=== PATIENT | male | born 1945 | race African-American/Black ===

== ENCOUNTER 2017-01-04 16:01 | Inpatient (IN) | payer OTHER, MEDICARE ==
--- NOTE | ~2017-01-04 | EGD ---
EGD REPORT [facility] [address] [address] NAME: TIFFANIE ORO : 43 STATUS : ADM IN PAT#: [id number] AGE: 71 ADM/REG DATE : 01/04/17 MR#: [id number] REPORT SERV DATE: 01/11/17 DICTATED BY: HEATH KATE DATE: 01/11/17 REPORT STATUS : Draft TRANSCRIBED BY: [facility] DATE: 01/11/17 Endoscopy Center Patient Name: Tiffanie Oro Date of : 1945 Attending MD: HEATH SUN MD Procedure Date No Time: 01/11/2017 Procedure: ERCP Indications: Jaundice, Primary sclerosing cholangitis Referring MD: LEANA MONTES DE OCA Medicines: Monitored Anesthesia Care Complications: No immediate complications. Estimated blood loss: None Procedure: Pre-Anesthesia Assessment: - ASA Grade Assessment: IV - A patient with severe systemic disease that is a constant threat to life. After obtaining informed consent, the scope was passed under direct vision. Throughout the procedure, the patient's blood pressure, pulse, and oxygen saturations were monitored continuously. The Duodenoscope was introduced through the mouth, and advanced to the duodenum and used to inject contrast into the bile duct. The ERCP was accomplished without difficulty. The patient tolerated the procedure well. Findings: The pcb designer film was normal. The esophagus was successfully intubated under direct vision. The scope was advanced to a normal major papilla in the descending duodenum without detailed examination of the pharynx, larynx and associated structures, and upper GI tract. The upper GI tract was grossly normal. After engaging the papilla with the sphinctertome, the 0.035-inch Jagwire was passed into the CBD but was unable to be passed for more than 6-7 cm without running into an obstruction. Multiple angles were tried, but the wire would not pass this area. Superficial cannulation of and contrast injection into the bile duct was accomplished with the short-nosed traction sphincterotome and the 12 mm balloon catheter. I personally interpreted the bile duct images. Image quality was adequate. The distal CBD up to the level of the cystic duct and gallbladder contained multiple diffuse stenoses. No contrast, even under forceful injection, passed beyond the level of the cystic duct, with all contrast filling the gallbladder. Therefore, the scope was withdrawn and the procedure terminated. Impression: - Diffuse biliary stricturing was found secondary to primary sclerosing cholangitis with complete blockage of the CBD above the cystic duct. - No endoscopic therapy is possible or would likely be EGD REPORT [address] [place]. [address] NAME: TIFFANIE ORO : 43 STATUS : ADM IN [facility]#: [id number] AGE: 71 ADM/REG DATE : 01/04/17 MR#: [id number] REPORT SERV DATE: 01/11/17 DICTATED BY: HEATH KATE DATE: 01/11/17 REPORT STATUS : Draft TRANSCRIBED BY: [facility] DATE: 01/11/17 helpful given diffuse stricturing and lack of dilation seen on imaging Recommendation: - [facility]. - Would consider a palliative care consult Procedure Code(s): --- Professional --- 82980, Endoscopic retrograde cholangiopancreatography (ERCP); diagnostic, including collection of specimen(s) by brushing or washing, when performed (separate procedure) Diagnosis Code(s): --- Professional --- K83.0, Cholangitis R17, Unspecified jaundice CPT copyright 2013 [employer]. All rights reserved. The codes documented in this report are preliminary and upon safety belt installer review may be revised to meet current compliance requirements. Heath Sun MD HEATH SUN MD 01/11/2017 10:45 AM This report has been signed electronically. Number of Addenda: 0 Note Initiated On: 01/11/2017 9:04 AM Scope Withdrawal Time 0 hours 0 minutes 0 seconds
--- NOTE | ~2017-01-04 | CN ---
Consultation Report [facility] [address] [place] [place]. [address] NAME: TIFFANIE ORO : 43 STATUS : ADM IN PAT#: [id number] AGE: 71 ADM/REG DATE : 01/04/17 MR#: [id number] REPORT SERV DATE: 01/05/17 DICTATED BY: MAMI ESPARZA DATE: 01/05/17 REPORT STATUS : Draft TRANSCRIBED BY: MODL DATE: 01/05/17 GI CONSULTATION DATE OF CONSULTATION: 01/05/2017 REASON FOR CONSULTATION: Evaluation and management of primary sclerosing cholangitis with autoimmune hepatitis with worsening of liver function testing. HISTORY OF PRESENT ILLNESS: Mr. Oro is a 71-year-old male patient, who has been seen by our group in the past. He was initially seen by Dr. Pereira in 01/2013 secondary to primary sclerosing cholangitis. He had an ERCP with a stent placed, then it subsequently was removed. He followed up with Dr. Pereira in 06/2014. Since that time, we did not see him until he presented to the hospital in 09/2016 when we were asked to see him for elevated liver function testing. He was seen by myself as well as Dr. Patel. He had an MRCP done, which showed obstruction of the biliary system in the intrahepatic ducts. He was taken for ERCP on 09/27/2016. Dr. Patel was unable to pass a wire beyond the takeoff of the cystic duct due to preferential passage of wire and catheter into the cystic duct likely secondary to obstruction at the level, iatrogenic bile leak was noted, the procedure was terminated and he was covered with antibiotics, and he was subsequently discharged. Before discharge, he was discussed with a liver specialist, Dr. Carlos Eduardo Mosqueda. He was discontinued on Imuran and placed on CellCept as an alternative as a last ditch therapy to try to reduce his progressive sclerosing cholangitis. The patient, at that time, had made it very clear he did not want any aggressive interventions for his progressive hepatic dysfunction. This was discussed with the patient as well as the patient's brother, as well as the caregiver of the [facility]. [facility] alpha- fetoprotein as well as a repeat CA19-9 level. I am unsure if any of this was ever done. He presented on 01/04 with complaints of confusion and jaundiced appearance. He does carry a history of schizophrenia. He lives at the [facility], they had noted worsening confusion and some abdominal bloating and distention, thus bringing him to the emergency room. CT scan of the abdomen and pelvis showed large-volume ascites as well as focal dilation of the biliary ducts, concerning for obstruction of the intrahepatic ducts. It did appear largely unchanged since his September imaging. The patient did suffer a fall after leaving his emergency room and fell off in the parking lot, sustaining a left proximal humerus fracture. Presently, his arm is in a sling. He had quite an elevation in his INR on admission to 6.5, his previous INR was 2.6. He is presently receiving FFP as well as vitamin K to bring his INR down, so he can undergo a paracentesis with fluid analysis. I have seen and examined the patient. He is awake, he is alert, he is oriented, he knows he is at [facility], he knows the year is 2016, he knows his date of , and he knows who the current president is. He denies any abdominal pain. He states that he has had some intermittent issues with hemorrhoidal irritation, but states that they took care of this in the emergency room. He was found to be anemic with a hemoglobin of 6.8. He is also going to receive two units of packed red blood cells. His stool did come back positive for occult blood. However, no obvious blood was noted to be in his bowel movement. I will discuss the case with Dr. Pereira. Likely, we will not plan on repeating an ERCP at this time secondary to the Consultation Report [address] [place]. [address] NAME: TIFFANIE ORO : 43 STATUS : ADM IN [facility]#: [id number] AGE: 71 ADM/REG DATE : 01/04/17 MR#: [id number] REPORT SERV DATE: 01/05/17 DICTATED BY: MAMI ESPARZA DATE: 01/05/17 REPORT STATUS : Draft TRANSCRIBED BY: MODL DATE: 01/05/17 failed attempt in September. 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 PAST SURGICAL HISTORY: ERCP, hiatal hernia surgery, and cholecystectomy. SOCIAL HISTORY: Past tobacco. Past alcohol. No illicits. He lives at the [facility]. FAMILY HISTORY: Mother is from pancreatic cancer. Siblings with cirrhosis. ALLERGIES: NO KNOWN ALLERGIES. HOME MEDICATIONS: Fosamax, Imuran, vitamin D, Colace, Proscar, Centrum, CellCept, Invega, Protonix, prednisone, Desyrel, ursodiol, and capsaicin. REVIEW OF SYSTEMS: A 10-point review of systems obtained with pertinent positives addressed in the history of present illness. PERTINENT LABORATORY DATA: Sodium 139, potassium 3.6, BUN is 13, creatinine 0.63. White count 13.3, hemoglobin 6.8, hematocrit is 21.1, platelet count 365. INR is 6.5. CT without contrast, large-volume ascites, which is new. Also, the wall of the descending and sigmoid colon had some diffuse edema. PHYSICAL EXAMINATION: VITAL SIGNS: Temperature 97.2, pulse 101, respirations 22, and blood pressure 95/52. NEURO: Reveals an alert male, resting in bed, chronically ill appearing. No obvious focal deficits. GENERAL: He is cooperative. He is in no obvious distress. He is awake. He is alert. He is oriented x3. HEAD, EARS, EYES, NOSE, AND THROAT: Positive for scleral icterus. Pupils are equal, round, reactive to light and accommodation. Normocephalic and atraumatic. Poor dentition noted. SKIN: Warm, dry, and intact with notable jaundice. NECK: No JVD. No palpable nodes. LUNGS: Clear anteriorly with normal respiratory effort exhibited. Equal expansion. CARDIOVASCULAR SYSTEM: Regular rate and rhythm, but tachycardic. ABDOMEN: Soft with notable ascites, mild fluid wave, no tense ascites. No abdominal pain was elicited on exam. No rebound or guarding. No organomegaly appreciated. EXTREMITIES: No edema. Normal distal pulses. Left arm is in a sling. SKIN: Warm, dry, and intact. Consultation Report [place] [address] [place] [place]. [address] NAME: TIFFANIE ORO : 43 STATUS : ADM IN [facility]#: [id number] AGE: 71 ADM/REG DATE : 01/04/17 MR#: [id number] REPORT SERV DATE: 01/05/17 DICTATED BY: MAMI ESPARZA DATE: 01/05/17 REPORT STATUS : Draft TRANSCRIBED BY: ROBINSON DATE: 01/05/17 ASSESSMENT: 1. History of primary sclerosing cholangitis with autoimmune hepatitis. 2. "Confusion" with normal ammonia. He is alert and oriented on my assessment. 3. Anemia. 4. Ascites. 5. Coagulopathy secondary to liver dysfunction. 6. Left humerus fracture status post fall on 01/04. 7. Schizophrenia. PLAN: 1. Paracentesis per primary order with fluid analysis. 2. FFP and vitamin K to reverse his INR. 3. Continue ursodiol, prednisone, CellCept, and Imuran. 4. Check an AFP as well as a CA19-9. 5. We will discuss further with Dr. Pereira if any indication for ERCP or further testing. 6. We will also add albumin prior to his paracentesis. We will follow. MAURICE/ROBINSON [place] ALICIA Mann / [id number] CC: Cat Alexander M.D.
--- NOTE | ~2017-01-04 | IDS ---
Interim Discharge Summary [facility] [address] [place] [place]. [address] NAME: TIFFANIE ORO : 43 STATUS : ADM IN PAT#: [id number] AGE: 71 ADM/REG DATE : 01/04/17 MR#: [id number] REPORT SERV DATE: 01/09/17 DICTATED BY: ALBERTO GEORGES DATE: 01/09/17 REPORT STATUS : Draft TRANSCRIBED BY: MODL DATE: 01/09/17 ADMISSION DATE: 01/04/2017 DISCHARGE DATE: Date of service provided from 01/05/2017 to 01/08/2017. For the details of history of present illness, see history of present illness dictated by Dr. Cool on 01/04/2017. CURRENT MEDICAL PROBLEMS: 1. Primary sclerosing cholangitis with autoimmune hepatitis, on treatment per recommendation of pump tester, Dr. Pereira and Dr. Mosqueda on Imuran and CellCept as well as prednisone. 2. Status post left humerus fracture this admission seen by Dr. Joselito Rai and sling with swathe was recommended. 3. Severely elevated bilirubin at 14 with coagulopathy with INR 6 being on admission secondary to primary sclerosing cholangitis and autoimmune hepatitis. 4. Ascites, status post 2 L of fluid removed by paracentesis during this hospitalization. 5. Blood pressure normal to borderline. 6. History of schizophrenia, currently stable mood. 7. History of mild aortic stenosis. CONSULTANTS ON THE CASE: Regional Program Manager, nurse practitioner, Jaime as well as under supervision of Dr. Patel as well as Dr. Carlo sEduardo Mosqueda, network systems operator was contacted by phone. He will follow up on this patient tomorrow. HISTORY OF PRESENT ILLNESS: Briefly this is a 71-year-old male, who was admitted by Dr. Cool with severe coagulopathy and severe anemia as well as hyperbilirubinemia and jaundice, weakness and he had a left humerus fracture on admission. The patient was admitted to hospital for his humerus fracture. Dr. Joselito Rai was consulted who recommended the patient to be treated conservatively with a sling, and he needs to follow up with Dr. Joselito Rai, orthopedist in two weeks. Regarding the patient's biliary obstruction, the patient needs ERCP and procedure is scheduled by Dr. Lira and Dr. Patel will do ERCP on him probably tomorrow. Also Pankaj nurse practitioner, left message on the patient's brother's cellphone. The patient's brother was here on the weekend and I spoke with the patient's brother telling him that the patient's disease does not have a good prognosis but [place], Gastroenterology nurse practitioner is going to update his brother more. She left in her cell phone for his brother to call her back. Overall plan of treatment is defined by Gastroenterology and by Dr. Patel and Dr. Carlos Eduardo Mosqueda. The patient may need placement. After this procedure, he will need physical therapy evaluation and probably placement and regarding his humeral fracture, he needs to follow up with Dr. Joselito Rai in two weeks. My partner, Dr. Baltazar will see this patient starting tomorrow morning. Also the patient is on antibiotic Levaquin per pump tester. Interim Discharge Summary [address] [address] NAME: TIFFANIE ORO : 43 STATUS : ADM IN PAT#: [id number] AGE: 71 ADM/REG DATE : 01/04/17 MR#: [id number] REPORT SERV DATE: 01/09/17 DICTATED BY: ALBERTO GEROGES DATE: 01/09/17 REPORT STATUS : Draft TRANSCRIBED BY: ROBINSON DATE: 01/09/17 /ROBINSON Alberto Georges M.D. / [id number] CC: Alberto Georges M.D.
--- NOTE | ~2017-01-04 | CN ---
Consultation Report [facility] [address] [place] [place]. [address] NAME: TIFFANIE ORO : 43 STATUS : ADM IN PAT#: [id number] AGE: 71 ADM/REG DATE : 01/04/17 MR#: [id number] REPORT SERV DATE: 01/05/17 DICTATED BY: JOSELITO RAI III DATE: 01/05/17 REPORT STATUS : Draft TRANSCRIBED BY: ROBINSON DATE: 01/05/17 CONSULTATION DATE OF CONSULTATION: 01/05/2017 CHIEF COMPLAINT: Left shoulder pain. HISTORY: The patient is a 71-year-old black male, who fell yesterday injuring his left shoulder. He presented here to the emergency room at [facility] where x-rays reveal a slightly displaced and impacted left proximal humerus fracture, and he is admitted for autoimmune hepatitis to undergo a paracentesis. On orthopedic exam, he is comfortable in his sling. He really needs to have a sling and swathe. He has some swelling to the proximal humerus with pain with minimal attempted passive range of motion. Neurologic exam to the left upper extremity is grossly intact. X-rays reveal an impacted, slightly displaced left proximal humerus fracture. PLAN: I think this will heal fine in a sling and swathe. He needs some ice on the shoulder and I will see him in two weeks. Appreciate this consultation. AUGUSTINA/ROBINSON Joselito Rai III, M.D. / [id number] CC: Cat Alexander M.D.
--- NOTE | ~2017-01-04 | HP ---
History And Physical [place] [id number] [place]. [address] NAME: TIFFANIE ORO : [birth year] STATUS : ADM IN [facility]#: [id number] AGE: 71 ADM/REG DATE : 01/04/17 MR#: [id number] REPORT SERV DATE: 01/04/17 DICTATED BY: IRENE BLOOM DATE: 01/04/17 REPORT STATUS : Draft TRANSCRIBED BY: MODGabby DATE: 01/04/17 DATE OF ADMISSION: 01/04/2017 ADDENDUM: ADDITIONAL ADMISSION DIAGNOSES: 1. Severe coagulopathy of liver disease. 2. Acute on chronic anemia. PLAN: 1. Coagulopathy of liver disease. INR was not obtained by ER staff. When I saw the patient, I ordered an INR which just came back as elevated with an INR of 6.2 consistent with severe coagulopathy of liver disease. The patient has no obvious sources of active bleeding at this time. Therefore, I will place the patient on oral vitamin K 10 mg daily, first dose today as well as type and screen. Should the patient develop obvious signs of bleeding, we will need to transfuse with FFP to correct his coagulopathy. 2. Acute on chronic anemia. The patient does have a hemoglobin of 7.7. His last hemoglobin in September was 10.9. Again, there are no obvious sources of bleeding at this time. We will check an occult stool as well as type and screen, and we will transfuse again for hemoglobin less than 7 and correct coagulopathy with vitamin K or with FFP if necessary. AUGUSTINA/ROBINSON Irene Bloom MD / [id number] CC: Cat Alexander M.D.
--- NOTE | ~2017-01-04 | DS ---
Discharge Summary [place] [id number] [place]. [address] NAME: TIFFANIE ORO : 43 STATUS : DIS IN PAT#: [id number] AGE: 71 ADM/REG DATE : 01/04/17 MR#: [id number] REPORT SERV DATE: 01/13/17 DICTATED BY: ESPERANZA STARR DATE: 01/12/17 REPORT STATUS : Draft TRANSCRIBED BY: MODL DATE: 01/12/17 ADMISSION DATE: 01/04/2017 DISCHARGE DATE: 01/12/2017 PCP: Dr. Jayashree RIBERA. CONSULTING PHYSICIAN: Outpatient GI, Dr. Pereira; Jacquard Card Lacer, Dr. Carlos Eduardo Mosqueda; Palliative Care, Dr. Wallace. FINAL DIAGNOSES: 1. Primary sclerosing cholangitis. 2. Autoimmune hepatitis. 3. Ascites, status post paracenteses. 4. Nondisplaced left humeral fracture. 5. Benign prostatic hypertrophy. 6. Schizophrenia. 7. Anemia of chronic disease. HOSPITAL COURSE: Please refer to the H and P done by Dr. Cool dated on 01/06/2017 and the interim discharge summary done by Dr. Alexander on 03/11/2017. Since I took care of this patient, the patient was supposed to have an ERCP, but that was held because of the elevated INR. The patient has a bad liver and primary sclerosing cholangitis, which causes him to have a coagulopathy. Even though we are giving vitamin K, it seems not to be going down. Finally, FFP was given, and the patient was able to undergo an ERCP. They found a diffuse biliary stricturing secondary to primary sclerosing cholangitis, with complete blockage of common bile duct above the cystic duct. No endoscopic therapy is possible or would likely be helpful given diffuse stricturing and lack of dilation seen on imaging. They recommended Palliative Care consultation. We got Dr. Wallace involved who believes that the patient is alert and oriented x3 and was understanding of what is going on and he did not want to have any resuscitation or intubation. He said that he will be considering hospice, but is wanting to go out of the hospital and go to the SNF or rehab facility and think about it there. This was explained also to the brother who seems to understand after lengthy discussion with him. The patient will now be transferred to SNF with the above diagnosis. He will need to follow up with the SNF doctor and [facility], Dr. Blanc. Follow up with Dr. Pereira and Dr. Mosqueda as well. He will be on the following medications. Imuran 50 mg a day, vitamin D 1000 units a day, Proscar 5 mg a day, Fosamax 70 mg q.7 days, multivitamin once a day, CellCept 1 g twice a day, Protonix 40 mg twice a day, Desyrel 75 mg at bedtime, spironolactone 50 mg twice a day, Lasix 20 mg twice a day, ursodiol 500 mg twice a day, prednisone 5 mg a day, capsaicin as needed, Colace 100 mg p.r.n., Invega 3 mg twice a day, Augmentin 875 mg p.o. b.i.d. for seven days. RLY/MODL Discharge Summary [address] [address] NAME: TIFFANIE ORO : 43 STATUS : DIS IN PAT#: [id number] AGE: 71 ADM/REG DATE : 01/04/17 MR#: [id number] REPORT SERV DATE: 01/13/17 DICTATED BY: ESPERANZA STARR DATE: 01/12/17 REPORT STATUS : Draft TRANSCRIBED BY: ROBINSON DATE: 01/12/17 Esperanza Starr M.D. / [id number] CC: Esperanza Starr M.D.
--- NOTE | ~2017-01-04 | HP ---
History And Physical [place] [id number] [facility] [place]. [address] NAME: TIFFANIE ORO : 43 STATUS : ADM IN [facility]#: [id number] AGE: 71 ADM/REG DATE : 01/04/17 MR#: [id number] REPORT SERV DATE: 01/06/17 DICTATED BY: IRENE BLOOM DATE: 01/04/17 REPORT STATUS : Draft TRANSCRIBED BY: MODL DATE: 01/04/17 DATE OF ADMISSION: 01/04/2017 POINT OF ENTRY: [facility] Emergency Department. PRIMARY CARE PHYSICIAN: Dr. Blanc through the [place]. PRIMARY MOLDING FITTER: Scott Pereira MD CHIEF COMPLAINT: Confusion and jaundice. HISTORY OF PRESENT ILLNESS: Mr. Oro is a 71-year-old gentleman with a known history of primary sclerosing cholangitis as well as autoimmune hepatitis who is brought to the emergency department by his family members for reports of worsening confusion, jaundice, as well as abdominal bloating and distention. The patient has a known history of primary sclerosing cholangitis as well as autoimmune hepatitis. He is currently on chronic immunosuppressives of low-dose prednisone, Imuran, as well as CellCept for these issues. He was admitted in September of 2016 for a syncopal episode, and at that time, found to have rising transaminitis secondary to his known liver disease. He underwent GI evaluation with MRCP, which was concerning for possible focal obstruction of some intrahepatic ducts resulting in an ERCP that unfortunately had to be aborted secondary to difficulty in cannulating the common bile duct. The patient has a known history of schizophrenia and currently lives at [facility]. Per nursing report, his brother was contacted by [facility] for worsening confusion, jaundice, as well as abdominal bloating and distention. Initial evaluation in the emergency department is notable for a bilirubin of 11.0. Of note, his bilirubin was 10.5 in September. The patient also has significant transaminitis, which appears to be chronic. Ammonia level was not checked by the ER physician. CT scan of the brain was unremarkable. CT scan of the abdomen and pelvis showed large volume ascites as well as focal dilatation of the biliary ducts concerning for obstruction of intrahepatic duct, which appears to be largely unchanged from prior imaging in September. Some time during his ER stay, the patient left his room and unfortunately fell in the EMS parking lot. X-rays of the left shoulder revealed a fracture of the proximal left humerus. REVIEW OF SYSTEMS: Comprehensive review of systems otherwise negative unless listed in the history of present illness. PREVIOUS MEDICAL HISTORY: 1. Schizophrenia. 2. Primary sclerosing cholangitis, on CellCept, prednisone, and Imuran. 3. Autoimmune hepatitis, on the above medications. 4. Gastroesophageal reflux disease and peptic ulcer disease. History And Physical [address] [address] NAME: TIFFANIE ORO : 43 STATUS : ADM IN [facility]#: [id number] AGE: 71 ADM/REG DATE : 01/04/17 MR#: [id number] REPORT SERV DATE: 01/06/17 DICTATED BY: IRENE BLOOM DATE: 01/04/17 REPORT STATUS : Draft TRANSCRIBED BY: ROBINSON DATE: 01/04/17 5. History of spinal compression fractures. 6. Hypoalbuminemia secondary to known liver disease. 7. History of coagulopathy of liver disease. PAST SURGICAL HISTORY: 1. Cholecystectomy. 2. ERCP and history of stent placed in the past. ALLERGIES: NO KNOWN DRUG ALLERGIES. HOME MEDICATIONS: 1. Fosamax 70 mg weekly. 2. Imuran 50 mg daily. 3. Vitamin D 1000 units daily. 4. Colace 100 mg b.i.d. p.r.n. 5. Proscar 5 mg daily. 6. Multivitamin one tablet daily. 7. CellCept 1 g b.i.d. 8. Invega 3 mg b.i.d. 9. Protonix 40 mg b.i.d. 10.Prednisone 5 mg daily. 11.Trazodone 75 mg q.h.s. 12.Ursodiol 500 mg b.i.d. 13.Capsaicin one application topical p.r.n. SOCIAL HISTORY: Denies any tobacco, alcohol, or illicits. He is a former smoker and drinker. Now lives at [facility]. FAMILY MEDICAL HISTORY: Mother with history of pancreatic cancer. Father with coronary artery disease. Siblings with history of hepatic cirrhosis. LABS AND IMAGIN. White count is 12.1, hemoglobin is 7.7, hematocrit is 24.1, and platelet count is 419. INR, again is not check by ER physician. 2. Sodium is 136, potassium is 3.2, chloride 104, carbon dioxide 21, BUN 13, creatinine 0.75, glucose is 103, calcium 7.4, protein is 6.2, albumin is 1.5, bilirubin is 11.0, ALT is 89, AST 144, and alkaline phosphatase of 367. 3. Urinalysis, specific gravity is 1.026, hazy with trace ketones, but no evidence of any infection. 4. CT scan of the abdomen and pelvis shows suspected left-sided colitis with large volume ascites that is new as well as suspected atrophy of the superior anterior right portion of the liver with associated focal dilatation of biliary ducts, obstructive intrahepatic biliary duct must be considered. 5. CT scan of the brain shows moderate cerebral atrophy, but no acute intracranial abnormality. 6. CT scan of the C-spine shows no acute abnormalities. 7. Plain films of the left shoulder shows a proximal left humeral fracture. History And Physical [address] [address] NAME: TIFFANIE ORO : 43 STATUS : ADM IN [facility]#: [id number] AGE: 71 ADM/REG DATE : 01/04/17 MR#: [id number] REPORT SERV DATE: 01/06/17 DICTATED BY: IRENE BLOOM DATE: 01/04/17 REPORT STATUS : Draft TRANSCRIBED BY: ROBINSON DATE: 01/04/17 PHYSICAL EXAMINATION: VITAL SIGNS: Temperature is 98.1 degrees Fahrenheit, pulse is 81, respirations 16, sat 100% on room air, and blood pressure 114/71. GENERAL: The patient is awake, alert, in no acute distress, and resting comfortably in bed. He is a well-developed, well-nourished, elderly male, no family is at bedside. HEENT: Atraumatic and normocephalic. Moist mucous membranes. Pupils are equal, round, reactive to light and accommodation. Extraocular eye movements are intact. Positive scleral icterus. NECK: No jugular venous distention. No carotid bruits. CARDIAC: Regular rate and rhythm. No murmurs or gallops. Normal S1 and S2. LUNGS: Clear to auscultation bilaterally. No wheezes, rhonchi, or crackles. ABDOMEN: It is distended with a positive ascitic fluid wave. Hypoactive bowel sounds throughout, but no rebound, guarding, or rigidity. EXTREMITIES: Warm and well perfused with 1+ lower extremity edema bilaterally. SKIN: Warm and dry. PSYCH: Affect appropriate. NEURO: Alert and oriented x3. Cranial nerves II through XII are grossly intact. Speech is normal. Gait not assessed. MUSCULOSKELETAL: Left proximal upper extremity is tender to palpation and is currently in a sling secondary to known fracture. ASSESSMENT AND PLAN: Mr. Oro is a 71-year-old gentleman with known history of primary sclerosing cholangitis and autoimmune hepatitis who presents with worsening confusion, jaundice, abdominal bloating and distention, and found to have evidence of new-onset large volume ascites as well as evidence of chronic transaminitis secondary to his known liver disease. Unfortunately, while he was in the ER, he also suffered mechanical fall with resulting left humeral fracture. PROBLEM LIST: 1. Confusion concerning for hepatic encephalopathy. Ammonia level pending. 2. Proximal left humeral fracture, status post mechanical fall. 3. History of primary sclerosing cholangitis and autoimmune hepatitis. 4. New-onset ascites. 5. Schizophrenia. PLAN: 1. Confusion. The patient's confusion is likely secondary to hepatic encephalopathy given the patient's known history of liver disease and his chronic transaminitis. Ammonia level is pending at the time of dictation. Urinalysis is clear as was his CT scan of the brain. We will check other potential contributors such as urine drug screen, thyroid function studies, as well as B12. Holding sedating medications. We will likely need to start the patient on some lactulose given results of ammonia level. 2. Chronic liver disease with PSC and autoimmune hepatitis. The patient has transaminitis with elevated bilirubin, AST, ALT, and alkaline phosphatase; however, these appeared to be largely unchanged compared to recent comparison labs from his admission in September [facility] And Physical [address] [address] NAME: TIFFANIE ORO : 43 STATUS : ADM IN [facility]#: [id number] AGE: 71 ADM/REG DATE : 01/04/17 MR#: [id number] REPORT SERV DATE: 01/06/17 DICTATED BY: IRENE BLOOM DATE: 01/04/17 REPORT STATUS : Draft TRANSCRIBED BY: MODL DATE: 01/04/17 2016. Imaging is also largely unchanged as well. We will consult the patient's primary quill cleaning machine operator for assistance. Continue the patient's home medications including CellCept, Imuran, and prednisone. 3. Mechanical fall with left humeral fracture. The patient is currently in a sling. We will consult Orthopedic Surgery for assistance with management. 4. New-onset ascites, likely secondary to the patient's liver disease. The patient denies any prior need for paracentesis. We will schedule him for paracentesis and send off the appropriate acidic labs. Place him on some low-dose Lasix and Aldactone to prevent fluid reaccumulation given the presence of ascites, edema, as well as hypoalbuminemia. 5. Schizophrenia. Continue the patient's home medications. 6. DVT prophylaxis. Lovenox subcutaneously. However, INR is pending at the time of dictation. 7. Code status. The patient wished to be full code. JCB/MODL Irene Bloom MD / [id number] CC: Tete Christensen MD
[2017-01-04 13:53] LABS: ASCORBIC ACID (UR NOT ORDER) NEG (NEG); BILIRUBIN, URINE MODERATE (NEG); ER URINALYSIS TAT 0 Hrs 11 Mins; KETONE, URINE TRACE MG/DL (NEG); LEUKOCYTE ESTERASE(NOT OR NEG (NEG); NITRITE (URINE) NEG (NEG); WBC (NOT ORDERED) (RFLEX) 2 (0-5)
[2017-01-04 13:54] LABS: BASOPHILS 0.1 %; BASOPHILS ABSOLUTE 0.01 10/3/uL (0.0-0.16); EOSINOPHILS 0.1 %; EOSINOPHILS ABSOLUTE 0.01 10/3/uL (0.0-0.53); ER CBC TAT 0 Hrs 12 Mins; HEMATOCRIT 24.1 % (40.0-51.0); HEMOGLOBIN 7.7 g/dL (13.6-17.8); IMMATURE GRANULOCYTES 0.5 %; IMMATURE GRANULOCYTES ABSOLUTE 0.06 10/3/uL (0.0-0.11); LYMPHOCYTES ABSOLUTE 0.73 10/3/uL (0.67-4.30); MANUAL DIFF NO %; MEAN CORPUSCULAR VOLUME 87.6 fL (80-100); MEAN PLATELET VOLUME 9.7 fL (9.2-13.0); MONOCYTES 4.5 %; MONOCYTES ABSOLUTE 0.55 10/3/uL (0.21-1.20); NEUTROPHILS 88.8 %; NEUTROPHILS ABSOLUTE 10.78 10/3/uL (2.02-8.40); NUCLEATED RED BLOOD CELLS 0.4 /100WBC (0-0); PLATELET COUNT 419 10/3/uL (150-400); RBC DISTRIBUTION WIDTH 18.5 % (12.0-16.0); RED CELL COUNT 2.75 10/6/uL (4.7-6.1); WHITE BLOOD CELLS 12.1 10/3/uL (4.5-10.5)
[2017-01-04 14:08] LABS: A/G RATIO 0.3 (0.7-1.9); ALBUMIN 1.5 G/DL (3.5-5.0); ALKALINE PHOSPHATASE 367 U/L (45-117); BUN (BLOOD UREA NITROGEN) 13 MG/DL (6-23); CALCIUM, SERUM 7.4 MG/DL (8.5-10.4); CHLORIDE, SERUM 104 MMOL/L (96-112); CO2 (CARBON DIOXIDE) 21 MMOL/L (24-34); CREATININE 0.75 MG/DL (0.70-1.30); GFR AFRICAN AMERICAN 106 ML/MIN (>=60); GFR NON AFRICAN AMERICAN 92 ML/MIN (>=60); GLOBULIN 4.7 G/DL (2.5-4.1); GLUCOSE, SERUM 103 MG/DL (60-99); POTASSIUM, SERUM 3.2 MMOL/L (3.5-5.3); SGOT(AST) 144 U/L (5-40); SGPT(ALT) 89 U/L (5-65); SODIUM, SERUM 136 MMOL/L (135-148); TOTAL PROTEIN 6.2 G/DL (6.0-8.5)
[~2017-01-04 16:01] MED LIST: ACT300 PO; CAPSAICIN 0.025% EX; CELLCEPT5 PO; CIP5 PO; COGEN1 PO; D.O.S.100 MG PO; DSS PO; FERROUS SULF325 M1 PO; IMU PO; INVEGA3 MG PO; MIRALAXPKT PO; MULTI-VIT HP OR; MULTIVIT/MIN PO; NAP375 PO; NEUR100 PO; NORCO1 TA1 PO; OYST-CAL500 MG PO; P5 PO; PALIPERIDONE PALMITATE IM; POTASSIUM CHLO; PRILO PO; PROSCAR5 PO; PROTONIX PO; QUESTRAN4 GM PO; T PO; TRAZ50 PO; VITAMIN D31000 UNIT PO; [UNRECOGNIZED DRUG - OTHER] EX; [UNRECOGNIZED DRUG - OTHER] TOP
[2017-01-04 16:37] LABS: DIRECT BILIRUBIN 9.5 MG/DL (0.0-0.4); INDIRECT BILIRUBIN(NOT ORDER) 1.5 MG/DL (0.1-0.9)
[2017-01-04] MEDS ORDERED: IMU PO (18:04)
[2017-01-04] MEDS ORDERED: FOSAMAX70 MG PO (18:04)
[2017-01-04] MEDS ORDERED: VITAMIN D1000 UNI1 PO (18:05)
[2017-01-04] MEDS ORDERED: PROSCAR5 PO (18:05)
[2017-01-04] MEDS ORDERED: D.O.S.100 MG PO (18:05)
[2017-01-04] MEDS ORDERED: CAPSAICIN 0.025% TOP (18:05)
[2017-01-04] MEDS ORDERED: INVEGA3 MG PO (18:06)
[2017-01-04] MEDS ORDERED: CENTRUM PO (18:06)
[2017-01-04] MEDS ORDERED: CELLCEPT5 PO (18:06)
[2017-01-04] MEDS ORDERED: PROTONIX PO (18:07)
[2017-01-04] MEDS ORDERED: P5 PO (18:07)
[2017-01-04] MEDS ORDERED: TRAZ50 PO (18:07)
[2017-01-04] MEDS ORDERED: URSO FORTE500 MG PO (18:07)
[2017-01-04 20:38] LABS: PARTIAL THROMBO TIME 68.3 SEC (22.5-37.2); PROTIME (NOT ORD) 54.3 SEC (12.0-14.5)
[2017-01-04 20:41] LABS: INTERNATIONAL NORMAL RATI 6.2 UNITS (-)
[2017-01-04 23:03] LABS: FOLATE 15.3 NG/ML (>5.2); FREE T4 1.71 NG/DL (0.76-1.46); ULTRASENSITIVE TSH 0.755 MCIU/ML (0.358-3.740)
[2017-01-04 23:24] LABS: AMPHETAMINES (NOT ORD) NEG (NEG); BARBITURATES (NOT ORDERED NEG (NEG); BENZODIAZEPINES (NOT ORD) NEG (NEG); CANNABINOIDS (THC) NEG (NEG); COCAINE (NOT ORDERED) NEG (NEG); OPIATES NEG (NEG); PHENCYCLIDINE(PCP) NEG (NEG); TRICYCLICS NEG (NEG)
[2017-01-05 04:17] LABS: BASOPHILS 0.1 %; BASOPHILS ABSOLUTE 0.01 10/3/uL (0.0-0.16); EOSINOPHILS 0.1 %; EOSINOPHILS ABSOLUTE 0.01 10/3/uL (0.0-0.53); IMMATURE GRANULOCYTES 0.7 %; IMMATURE GRANULOCYTES ABSOLUTE 0.09 10/3/uL (0.0-0.11); LYMPHOCYTES 6.8 %; LYMPHOCYTES ABSOLUTE 0.91 10/3/uL (0.67-4.30); MEAN CORPUS HGB CONC 32.2 g/dL (32.0-36.0); MEAN CORPUSCULAR HEMOGLOB 27.8 pg (26.0-34.0); MEAN CORPUSCULAR VOLUME 86.1 fL (80-100); MEAN PLATELET VOLUME 9.8 fL (9.2-13.0); MONOCYTES 7.4 %; MONOCYTES ABSOLUTE 0.98 10/3/uL (0.21-1.20); NEUTROPHILS 84.9 %; NEUTROPHILS ABSOLUTE 11.29 10/3/uL (2.02-8.40); PLATELET COUNT 365 10/3/uL (150-400); RBC DISTRIBUTION WIDTH 18.4 % (12.0-16.0); RED CELL COUNT 2.45 10/6/uL (4.7-6.1); WHITE BLOOD CELLS 13.3 10/3/uL (4.5-10.5)
[2017-01-05 04:19] LABS: HEMATOCRIT 21.1 % (40.0-51.0); HEMOGLOBIN 6.8 g/dL (13.6-17.8); MANUAL DIFF NO %
[2017-01-05 04:23] LABS: PARTIAL THROMBO TIME 72.9 SEC (22.5-37.2)
[2017-01-05 04:35] LABS: PROTIME (NOT ORD) 56.6 SEC (12.0-14.5)
[2017-01-05 04:37] LABS: INTERNATIONAL NORMAL RATI 6.5 UNITS (-)
[2017-01-05 04:43] LABS: A/G RATIO 0.3 (0.7-1.9); ALBUMIN 1.5 G/DL (3.5-5.0); BUN (BLOOD UREA NITROGEN) 13 MG/DL (6-23); CALCIUM, SERUM 7.8 MG/DL (8.5-10.4); CHLORIDE, SERUM 108 MMOL/L (96-112); CO2 (CARBON DIOXIDE) 21 MMOL/L (24-34); CREATININE 0.63 MG/DL (0.70-1.30); GFR AFRICAN AMERICAN 114 ML/MIN (>=60); GFR NON AFRICAN AMERICAN 98 ML/MIN (>=60); GLOBULIN 4.6 G/DL (2.5-4.1); POTASSIUM, SERUM 3.6 MMOL/L (3.5-5.3); SGOT(AST) 155 U/L (5-40); SGPT(ALT) 86 U/L (5-65); SODIUM, SERUM 139 MMOL/L (135-148); TOTAL PROTEIN 6.1 G/DL (6.0-8.5)
[2017-01-05 04:50] LABS: GLUCOSE, SERUM 72 MG/DL (60-99); PHOSPHORUS, SERUM 1.5 MG/DL (2.5-4.5)
[2017-01-05 04:51] LABS: ALKALINE PHOSPHATASE 351 U/L (45-117); TOTAL BILIRUBIN 10.8 MG/DL (0-1.2)
[2017-01-06 07:16] LABS: INTERNATIONAL NORMAL RATI 2.1 UNITS (-)
[2017-01-06 07:17] LABS: PROTIME (NOT ORD) 23.1 SEC (12.0-14.5)
[2017-01-06 07:27] LABS: MEAN CORPUSCULAR HEMOGLOB 29.3 pg (26.0-34.0); MEAN CORPUSCULAR VOLUME 85.1 fL (80-100); NUCLEATED RED BLOOD CELLS 0.8 /100WBC (0-0); PLATELET COUNT 309 10/3/uL (150-400); RBC DISTRIBUTION WIDTH 16.6 % (12.0-16.0); WHITE BLOOD CELLS 14.2 10/3/uL (4.5-10.5)
[2017-01-06 07:28] LABS: HEMATOCRIT 30.2 % (40.0-51.0); HEMOGLOBIN 10.4 g/dL (13.6-17.8); MEAN CORPUS HGB CONC 34.4 g/dL (32.0-36.0); RED CELL COUNT 3.55 10/6/uL (4.7-6.1)
[2017-01-06 07:30] LABS: MANUAL DIFF NO %
[2017-01-06 07:35] LABS: ALBUMIN 1.6 G/DL (3.5-5.0); ALKALINE PHOSPHATASE 327 U/L (45-117); BUN (BLOOD UREA NITROGEN) 12 MG/DL (6-23); CALCIUM, SERUM 7.6 MG/DL (8.5-10.4); CHLORIDE, SERUM 102 MMOL/L (96-112); CO2 (CARBON DIOXIDE) 24 MMOL/L (24-34); CREATININE 0.75 MG/DL (0.70-1.30); DIRECT BILIRUBIN 11.2 MG/DL (0.0-0.4); GFR AFRICAN AMERICAN 106 ML/MIN (>=60); GFR NON AFRICAN AMERICAN 92 ML/MIN (>=60); GLUCOSE, SERUM 81 MG/DL (60-99); INDIRECT BILIRUBIN(NOT ORDER) 2.7 MG/DL (0.1-0.9); POTASSIUM, SERUM 2.9 MMOL/L (3.5-5.3); SGOT(AST) 138 U/L (5-40); SGPT(ALT) 77 U/L (5-65); SODIUM, SERUM 138 MMOL/L (135-148); TOTAL BILIRUBIN 13.9 MG/DL (0-1.2); TOTAL PROTEIN 6.3 G/DL (6.0-8.5)
[2017-01-06 13:41] LABS: BD FL SOURCE (NOT ORD) ASCITES
[2017-01-06 13:57] LABS: BD FL LYMPH (NOT ORD) 6 %; BF BASO (NOT OF) 0 %; BF LARGE MONONUCLEAR 81 %; BODY FLUID EOS (NOT ORD) 0 %; BODY FLUID SEG (NOT ORD) 13 %
[2017-01-06 14:03] LABS: BF ALBUMIN 0.2 G/DL; PROTEIN BODY FLUID 0.4 G/DL
[2017-01-06 14:23] LABS: BF TOTAL CELL CT (NOT ORD 169 /MM3; BODY FLUID RBC (NOT ORD) 80 /MM3
[2017-01-07 06:59] LABS: INTERNATIONAL NORMAL RATI 2.7 UNITS (-)
[2017-01-07 07:00] LABS: BASOPHILS 0.1 %; BASOPHILS ABSOLUTE 0.01 10/3/uL (0.0-0.16); EOSINOPHILS 0.1 %; EOSINOPHILS ABSOLUTE 0.01 10/3/uL (0.0-0.53); HEMOGLOBIN 8.6 g/dL (13.6-17.8); IMMATURE GRANULOCYTES ABSOLUTE 0.13 10/3/uL (0.0-0.11); LYMPHOCYTES 5.4 %; LYMPHOCYTES ABSOLUTE 0.71 10/3/uL (0.67-4.30); MEAN CORPUS HGB CONC 33.2 g/dL (32.0-36.0); MEAN CORPUSCULAR HEMOGLOB 28.8 pg (26.0-34.0); MEAN CORPUSCULAR VOLUME 86.6 fL (80-100); MEAN PLATELET VOLUME 9.8 fL (9.2-13.0); MONOCYTES 3.6 %; MONOCYTES ABSOLUTE 0.47 10/3/uL (0.21-1.20); NEUTROPHILS 89.8 %; NEUTROPHILS ABSOLUTE 11.75 10/3/uL (2.02-8.40); NUCLEATED RED BLOOD CELLS 2.6 /100WBC (0-0); PLATELET COUNT 292 10/3/uL (150-400); RBC DISTRIBUTION WIDTH 17.3 % (12.0-16.0); RED CELL COUNT 2.99 10/6/uL (4.7-6.1); WHITE BLOOD CELLS 13.1 10/3/uL (4.5-10.5)
[2017-01-07 07:01] LABS: PROTIME (NOT ORD) 28.2 SEC (12.0-14.5)
[2017-01-07 07:14] LABS: HEMATOCRIT 25.9 % (40.0-51.0); MANUAL DIFF NO %
[2017-01-07 07:16] LABS: BUN (BLOOD UREA NITROGEN) 12 MG/DL (6-23); CALCIUM, SERUM 7.9 MG/DL (8.5-10.4); CHLORIDE, SERUM 100 MMOL/L (96-112); CO2 (CARBON DIOXIDE) 26 MMOL/L (24-34); CREATININE 0.66 MG/DL (0.70-1.30); GFR AFRICAN AMERICAN 112 ML/MIN (>=60); GFR NON AFRICAN AMERICAN 97 ML/MIN (>=60); GLUCOSE, SERUM 91 MG/DL (60-99); SGPT(ALT) 58 U/L (5-65); SODIUM, SERUM 136 MMOL/L (135-148); TOTAL PROTEIN 5.9 G/DL (6.0-8.5)
[2017-01-07 07:22] LABS: A/G RATIO 0.6 (0.7-1.9); ALBUMIN 2.1 G/DL (3.5-5.0); ALKALINE PHOSPHATASE 251 U/L (45-117); GLOBULIN 3.8 G/DL (2.5-4.1); POTASSIUM, SERUM 3.5 MMOL/L (3.5-5.3); TOTAL BILIRUBIN 15.7 MG/DL (0-1.2)
[2017-01-07 07:23] LABS: SGOT(AST) 98 U/L (5-40)
[2017-01-08 07:07] LABS: INTERNATIONAL NORMAL RATI 2.4 UNITS (-); PROTIME (NOT ORD) 25.6 SEC (12.0-14.5)
[2017-01-08 07:17] LABS: BASOPHILS 0.1 %; BASOPHILS ABSOLUTE 0.01 10/3/uL (0.0-0.16); EOSINOPHILS 0.5 %; EOSINOPHILS ABSOLUTE 0.06 10/3/uL (0.0-0.53); HEMATOCRIT 24.6 % (40.0-51.0); HEMOGLOBIN 8.3 g/dL (13.6-17.8); IMMATURE GRANULOCYTES ABSOLUTE 0.12 10/3/uL (0.0-0.11); LYMPHOCYTES 5.6 %; LYMPHOCYTES ABSOLUTE 0.69 10/3/uL (0.67-4.30); MEAN CORPUS HGB CONC 33.7 g/dL (32.0-36.0); MEAN CORPUSCULAR HEMOGLOB 29.2 pg (26.0-34.0); MEAN CORPUSCULAR VOLUME 86.6 fL (80-100); MEAN PLATELET VOLUME 9.7 fL (9.2-13.0); MONOCYTES 6.3 %; MONOCYTES ABSOLUTE 0.78 10/3/uL (0.21-1.20); NEUTROPHILS 86.5 %; NEUTROPHILS ABSOLUTE 10.75 10/3/uL (2.02-8.40); NUCLEATED RED BLOOD CELLS 4.9 /100WBC (0-0); PLATELET COUNT 263 10/3/uL (150-400); RBC DISTRIBUTION WIDTH 17.5 % (12.0-16.0); RED CELL COUNT 2.84 10/6/uL (4.7-6.1); WHITE BLOOD CELLS 12.4 10/3/uL (4.5-10.5)
[2017-01-08 07:27] LABS: A/G RATIO 0.6 (0.7-1.9); ALBUMIN 2.1 G/DL (3.5-5.0); ALKALINE PHOSPHATASE 195 U/L (45-117); BUN (BLOOD UREA NITROGEN) 12 MG/DL (6-23); CALCIUM, SERUM 7.8 MG/DL (8.5-10.4); CHLORIDE, SERUM 96 MMOL/L (96-112); CO2 (CARBON DIOXIDE) 26 MMOL/L (24-34); CREATININE 0.62 MG/DL (0.70-1.30); GFR AFRICAN AMERICAN 115 ML/MIN (>=60); GFR NON AFRICAN AMERICAN 99 ML/MIN (>=60); GLOBULIN 3.4 G/DL (2.5-4.1); GLUCOSE, SERUM 82 MG/DL (60-99); POTASSIUM, SERUM 3.8 MMOL/L (3.5-5.3); SGOT(AST) 78 U/L (5-40); SGPT(ALT) 48 U/L (5-65); SODIUM, SERUM 131 MMOL/L (135-148); TOTAL BILIRUBIN 17.6 MG/DL (0-1.2); TOTAL PROTEIN 5.5 G/DL (6.0-8.5)
[2017-01-08 07:55] LABS: MANUAL DIFF NO %
[2017-01-09 05:00] LABS: BASOPHILS 0.1 %; BASOPHILS ABSOLUTE 0.01 10/3/uL (0.0-0.16); EOSINOPHILS 0.7 %; EOSINOPHILS ABSOLUTE 0.08 10/3/uL (0.0-0.53); HEMATOCRIT 22.9 % (40.0-51.0); HEMOGLOBIN 8.1 g/dL (13.6-17.8); IMMATURE GRANULOCYTES 1.7 %; LYMPHOCYTES ABSOLUTE 0.81 10/3/uL (0.67-4.30); MEAN CORPUSCULAR HEMOGLOB 30.2 pg (26.0-34.0); MEAN CORPUSCULAR VOLUME 85.4 fL (80-100); MEAN PLATELET VOLUME 9.7 fL (9.2-13.0); NEUTROPHILS 84.5 %; NEUTROPHILS ABSOLUTE 9.82 10/3/uL (2.02-8.40); NUCLEATED RED BLOOD CELLS 2.9 /100WBC (0-0); PLATELET COUNT 272 10/3/uL (150-400); RBC DISTRIBUTION WIDTH 18.1 % (12.0-16.0); RED CELL COUNT 2.68 10/6/uL (4.7-6.1); WHITE BLOOD CELLS 11.6 10/3/uL (4.5-10.5)
[2017-01-09 05:01] LABS: INTERNATIONAL NORMAL RATI 2.8 UNITS (-); MANUAL DIFF NO %; MEAN CORPUS HGB CONC 35.4 g/dL (32.0-36.0); PROTIME (NOT ORD) 29.6 SEC (12.0-14.5)
[2017-01-09 05:17] LABS: A/G RATIO 0.6 (0.7-1.9); ALKALINE PHOSPHATASE 186 U/L (45-117); BUN (BLOOD UREA NITROGEN) 14 MG/DL (6-23); CHLORIDE, SERUM 100 MMOL/L (96-112); CO2 (CARBON DIOXIDE) 24 MMOL/L (24-34); CREATININE 0.61 MG/DL (0.70-1.30); DIRECT BILIRUBIN 14.2 MG/DL (0.0-0.4); GFR AFRICAN AMERICAN 116 ML/MIN (>=60); GFR NON AFRICAN AMERICAN 100 ML/MIN (>=60); GLOBULIN 3.2 G/DL (2.5-4.1); GLUCOSE, SERUM 82 MG/DL (60-99); INDIRECT BILIRUBIN(NOT ORDER) 3.4 MG/DL (0.1-0.9); POTASSIUM, SERUM 4.1 MMOL/L (3.5-5.3); SGOT(AST) 88 U/L (5-40); SGPT(ALT) 46 U/L (5-65); SODIUM, SERUM 133 MMOL/L (135-148); TOTAL BILIRUBIN 17.6 MG/DL (0-1.2); TOTAL PROTEIN 5.2 G/DL (6.0-8.5)
[2017-01-09 19:46] LABS: INTERNATIONAL NORMAL RATI 2.7 UNITS (-); PROTIME (NOT ORD) 28.4 SEC (12.0-14.5)
[2017-01-10 05:45] LABS: BASOPHILS 0.1 %; BASOPHILS ABSOLUTE 0.01 10/3/uL (0.0-0.16); EOSINOPHILS 0.9 %; EOSINOPHILS ABSOLUTE 0.11 10/3/uL (0.0-0.53); HEMATOCRIT 22.9 % (40.0-51.0); IMMATURE GRANULOCYTES 3.3 %; IMMATURE GRANULOCYTES ABSOLUTE 0.39 10/3/uL (0.0-0.11); LYMPHOCYTES 8.7 %; LYMPHOCYTES ABSOLUTE 1.02 10/3/uL (0.67-4.30); MEAN CORPUS HGB CONC 34.9 g/dL (32.0-36.0); MEAN CORPUSCULAR HEMOGLOB 29.9 pg (26.0-34.0); MEAN CORPUSCULAR VOLUME 85.4 fL (80-100); MEAN PLATELET VOLUME 9.8 fL (9.2-13.0); MONOCYTES 5.6 %; MONOCYTES ABSOLUTE 0.66 10/3/uL (0.21-1.20); NEUTROPHILS 81.4 %; NEUTROPHILS ABSOLUTE 9.54 10/3/uL (2.02-8.40); NUCLEATED RED BLOOD CELLS 0.9 /100WBC (0-0); PLATELET COUNT 293 10/3/uL (150-400); RBC DISTRIBUTION WIDTH 18.6 % (12.0-16.0); RED CELL COUNT 2.68 10/6/uL (4.7-6.1); WHITE BLOOD CELLS 11.7 10/3/uL (4.5-10.5)
[2017-01-10 05:46] LABS: MANUAL DIFF NO %
[2017-01-10 05:50] LABS: INTERNATIONAL NORMAL RATI 1.9 UNITS (-)
[2017-01-10 05:53] LABS: PROTIME (NOT ORD) 21.8 SEC (12.0-14.5)
[2017-01-10 06:10] LABS: ALBUMIN 2.4 G/DL (3.5-5.0); BUN (BLOOD UREA NITROGEN) 14 MG/DL (6-23); CALCIUM, SERUM 8.2 MG/DL (8.5-10.4); CHLORIDE, SERUM 102 MMOL/L (96-112); CO2 (CARBON DIOXIDE) 23 MMOL/L (24-34); CREATININE 0.65 MG/DL (0.70-1.30); GFR AFRICAN AMERICAN 113 ML/MIN (>=60); GFR NON AFRICAN AMERICAN 97 ML/MIN (>=60); GLUCOSE, SERUM 77 MG/DL (60-99); POTASSIUM, SERUM 4.1 MMOL/L (3.5-5.3); SGOT(AST) 124 U/L (5-40); SGPT(ALT) 52 U/L (5-65); SODIUM, SERUM 136 MMOL/L (135-148); TOTAL PROTEIN 5.6 G/DL (6.0-8.5)
[2017-01-10 06:11] LABS: ALKALINE PHOSPHATASE 172 U/L (45-117); DIRECT BILIRUBIN 14.6 MG/DL (0.0-0.4); INDIRECT BILIRUBIN(NOT ORDER) 3.6 MG/DL (0.1-0.9); TOTAL BILIRUBIN 18.2 MG/DL (0-1.2)
[2017-01-11 02:15] LABS: INTERNATIONAL NORMAL RATI 1.3 UNITS (-)
[2017-01-11 02:35] LABS: ALBUMIN 2.5 G/DL (3.5-5.0); ALKALINE PHOSPHATASE 168 U/L (45-117); BUN (BLOOD UREA NITROGEN) 17 MG/DL (6-23); CHLORIDE, SERUM 101 MMOL/L (96-112); CO2 (CARBON DIOXIDE) 27 MMOL/L (24-34); CREATININE 0.71 MG/DL (0.70-1.30); GFR AFRICAN AMERICAN 109 ML/MIN (>=60); GFR NON AFRICAN AMERICAN 94 ML/MIN (>=60); GLUCOSE, SERUM 84 MG/DL (60-99); PHOSPHORUS, SERUM 1.8 MG/DL (2.5-4.5); POTASSIUM, SERUM 4.3 MMOL/L (3.5-5.3); SGOT(AST) 122 U/L (5-40); SGPT(ALT) 63 U/L (5-65); SODIUM, SERUM 135 MMOL/L (135-148); TOTAL PROTEIN 5.9 G/DL (6.0-8.5)
[2017-01-11 02:36] LABS: INDIRECT BILIRUBIN(NOT ORDER) 3.8 MG/DL (0.1-0.9); TOTAL BILIRUBIN 18.8 MG/DL (0-1.2)
[2017-01-12 06:48] LABS: INTERNATIONAL NORMAL RATI 1.2 UNITS (-)
== END 2017-01-12 12:49 | DRG 444 ==
LOC: ER 16:01 → 5SO 20:12
PROVIDERS: Hospitalist; Internal Medicine; Internal Medicine Gastroenterology; Nurse Practitioner Family
PROC: 30233K1 Transfusion of Nonautologous Frozen Plasma into Peripheral Vein, Percutaneous Approach (ICD-10-PCS; 2017-01-05)
PROC: 0W9G3ZZ Drainage of Peritoneal Cavity, Percutaneous Approach (ICD-10-PCS; principal; 2017-01-06)
PROC: 30233N1 Transfusion of Nonautologous Red Blood Cells into Peripheral Vein, Percutaneous Approach (ICD-10-PCS; 2017-01-06)
PROC: 0FJB8ZZ Inspection of Hepatobiliary Duct, Via Natural or Artificial Opening Endoscopic (ICD-10-PCS; 2017-01-11)
DX: K83.0 Cholangitis (principal); K83.1 Obstruction of bile duct; R18.8 Other ascites; K75.4 Autoimmune hepatitis; S42.302A Unspecified fracture of shaft of humerus, left arm, initial encounter for closed fracture; D64.9 Anemia, unspecified; Z51.5 Encounter for palliative care; K72.90 Hepatic failure, unspecified without coma; F20.9 Schizophrenia, unspecified; K21.9 Gastro-esophageal reflux disease without esophagitis; Z82.49 Family history of ischemic heart disease and other diseases of the circulatory system; Z90.49 Acquired absence of other specified parts of digestive tract; Z98.890 Other specified postprocedural states; Z79.899 Other long term (current) drug therapy; Z79.52 Long term (current) use of systemic steroids; Z87.891 Personal history of nicotine dependence; Z80.8 Family history of malignant neoplasm of other organs or systems; W18.30XA Fall on same level, unspecified, initial encounter; Y92.238 Other place in hospital as the place of occurrence of the external cause
CPT/HCPCS: 36415; 49083; 70450; 71010; 72125; 73030-LT; 74176; 74181; 74330; 80048; 80053; 80076; 80305; 81001; 82042; 82140; 82248; 82272; 82607; 82746; 83690; 83735; 84100; 84157; 84439; 84443; 85025; 85610; 85730; 86850; 86900; 86901; 86920; 87070; 87205; 88112; 88305; 89051; 93005; 97161-GP; 99285; A9270-GY; C1769; G8978-CM-GP; G8979-CK-GP; J0330; J1940; J1956; J2370; J2405; J2543; J3010; J3430; J7500; P9016; P9047; P9059; Q9967

== ENCOUNTER 2017-01-19 18:35 | Inpatient (IN) | payer MEDICARE ==
[2017-01-16 09:45] LABS: HEMOGLOBIN 9.6 g/dL (13.6-17.8); MEAN CORPUS HGB CONC 35.6 g/dL (32.0-36.0); MEAN CORPUSCULAR HEMOGLOB 30.8 pg (26.0-34.0); MEAN CORPUSCULAR VOLUME 86.5 fL (80-100); MEAN PLATELET VOLUME 10.3 fL (9.2-13.0); PLATELET COUNT 347 10/3/uL (150-400); RBC DISTRIBUTION WIDTH 24.2 % (12.0-16.0); RED CELL COUNT 3.12 10/6/uL (4.7-6.1); WHITE BLOOD CELLS 15.9 10/3/uL (4.5-10.5)
[2017-01-16 09:48] LABS: MANUAL DIFF YES %
[2017-01-16 09:59] LABS: BUN (BLOOD UREA NITROGEN) 21 MG/DL (6-23); CALCIUM, SERUM 8.3 MG/DL (8.5-10.4); CHLORIDE, SERUM 98 MMOL/L (96-112); CO2 (CARBON DIOXIDE) 21 MMOL/L (24-34); POTASSIUM, SERUM 3.7 MMOL/L (3.5-5.3); SODIUM, SERUM 133 MMOL/L (135-148)
[2017-01-16 10:00] LABS: CREATININE 0.85 MG/DL (0.70-1.30); GFR AFRICAN AMERICAN 101 ML/MIN (>=60); GFR NON AFRICAN AMERICAN 87 ML/MIN (>=60); GLUCOSE, SERUM 54 MG/DL (60-99)
[2017-01-16 10:23] LABS: BAND NEUTROPHILS 4 %; EOSINOPHILS 1 %; EOSINOPHILS ABSOLUTE (CALC) 0.16 10/3/uL (0.0-0.53); LYMPHOCYTES 6 %; LYMPHOCYTES ABSOLUTE (CALC) 0.95 10/3/uL (0.67-4.30); MONOCYTES 5 %; NEUTROPHILS ABSOLUTE (CALC) 13.99 10/3/uL (2.02-8.40); PLATELET ESTIMATE ADQ (ADEQUATE); SEGMENTED NEUTROPHIL (0) 84 %; TOTAL NUCLEATED CELLS 100
[2017-01-16 10:24] LABS: POLYCHROMASIA 1+ (2-5/OIF) (0-1/OIF); TARGET CELLS FEW (3-10/OIF) (0-1/OIF)
--- NOTE | ~2017-01-19 | DS ---
Discharge Summary [facility] [address] [facility] [place]. [address] NAME: TIFFANIE ORO : 43 STATUS : DIS IN PAT#: [id number] AGE: 71 ADM/REG DATE : 01/19/17 MR#: [id number] REPORT SERV DATE: 01/26/17 DICTATED BY: EDMUND VENTURA DATE: 01/25/17 REPORT STATUS : Draft TRANSCRIBED BY: MODL DATE: 01/25/17 ADMISSION DATE: 01/19/2017 DISCHARGE DATE: 01/25/2017 PRINCIPAL DIAGNOSIS: Hip fracture. 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 HISTORY OF PRESENT ILLNESS: Please see Dr. Clement' note 01/19. HOSPITAL COURSE: Please see interim summary of Dr. Verduzco on 01/23. Subsequent hospital course, patient was seen by Dr. Wallace of Palliative Care. The patient was in fact made DNR. It was actually felt that recovery was hopeless. The patient was not participating in physical therapy, was not eating, and he was increasingly jaundiced. The arrangements were made in fact to go to a intermediate facility and hospice to be consulted once there, and that was in fact arranged on 01/25. Medicines at discharge would reflect his home medications until the palliative care continued, so lactulose 45 t.i.d. versus hepatic encephalopathy, oxycodone, Alicia, CellCept, Proscar, prednisone 5, Protonix, tramadol. Greater than 30 minutes were spent on the care of this patient in discharge planning on discharge day. XENIA/ROBINSON Edmund Ventura M.D. / [id number] CC: Tete Tello MD Robert Warren Goldmann, M.D. Chirag Patel, M.D.
--- NOTE | ~2017-01-19 | CN ---
Consultation Report [facility] [address] [place]. [address] NAME: TIFFANIE ORO : 43 STATUS : ADM IN PAT#: [id number] AGE: 71 ADM/REG DATE : 01/19/17 MR#: [id number] REPORT SERV DATE: 01/20/17 DICTATED BY: MAMI ESPARZA DATE: 01/20/17 REPORT STATUS : Draft TRANSCRIBED BY: MODL DATE: 01/20/17 GI CONSULTATION DATE OF CONSULTATION: 01/20/2017 REASON FOR CONSULTATION: Evaluation and management of his end-stage primary sclerosing cholangitis, autoimmune hepatitis, as well as worsening liver functions. HISTORY OF PRESENT ILLNESS: Mr. Oro is a 71-year-old male patient, who is known to Dr. Scott Pereira, who carries a diagnosis of primary sclerosing cholangitis and autoimmune hepatitis. He was last seen by our group during the hospitalization from 01/05 until 01/12 of this year for his worsening liver function testing. Briefly, it should be noted the first time we initially saw Mr. Oro was in 01/2013 secondary to his primary sclerosing cholangitis. He had an ERCP with Dr. Pereira with stent being placed at that time and subsequently, it was removed. He followed up with Dr. Pereira in 06/2014. Since that time, we did not see him until he was hospitalized in 09/2016, in which we did evaluate him for elevated liver function testing. He was seen by myself and Dr. Patel. He did undergo an MRCP, which showed obstruction of the biliary system in the intrahepatic ducts. He was taken for ERCP on 09/27/2016. Dr. Patel was unable to cannulate the duct, the procedure was terminated. He was subsequently discharged with addition of CellCept to his regimen after discussion with Dr. Carlos Eduardo Mosqueda, liver specialist. He was continued on his Imuran and his prednisone as a last ditch therapy to try to reduce his progressive sclerosing cholangitis. In September, the patient at that time had made it very clear he did not want any aggressive interventions for his progressive hepatic dysfunction. This was discussed with the patient as well as the patient's brother as well as caregiver at the [facility], where he was residing. [facility], I am unsure if that was ever accomplished. He presented on 01/04/2017 to [facility] for confusion and jaundice. At that time, he had ascites, undergoing a paracentesis with ultimately negative fluid analysis. He did have obstruction of his intrahepatic ducts, largely unchanged since September. I did talk to Dr. Carlos Eduardo Mosqueda, who recommended ERCP and PTC if possible. He did undergo on 01/[address] Patel. That exam showed diffuse biliary stricturing secondary to primary sclerosing cholangitis with complete blockage of the common bile duct above the cystic duct. No endoscopic therapy was possible or would have likely even been helpful given the diffuse stricturing and lack of dilation seen on his imaging, and it was recommended at that time Palliative Care versus Hospice consultation. The patient was subsequently discharged to [facility] Palliative Care, Dr. Wallace did see him. The patient was considering hospice, but wanted to wait until after discharge and going to a shelter facility or rehab and think about it there. It was also discussed with the brother his diagnosis and clinical course. He re-presents on 01/19 with continued left hip pain, x-ray evidence of a left hip fracture. It should be noted that when he was here at [facility] in December, he had sustained a fall, being moved from the ambulance with a left humerus fracture. Now, he has x-ray evidence of a left femur with intertrochanteric fracture. He has been seen by orthopedist, who is going to take him for surgical repair of this today. GI was consulted to see him for his worsening liver function. However, per his Consultation Report [address] [place]. [address] NAME: TIFFANIE ORO : 43 STATUS : ADM IN [facility]#: [id number] AGE: 71 ADM/REG DATE : 01/19/17 MR#: [id number] REPORT SERV DATE: 01/20/17 DICTATED BY: MAMI ESPARZA DATE: 01/20/17 REPORT STATUS : Draft TRANSCRIBED BY: MODGabby DATE: 01/20/17 last hospitalization, there is really nothing else for GI to offer. He is not amenable for PTC or ERCP. He is on medications for his PSC and autoimmune hepatitis. I have discussed with the orthopedist, they are planning on putting him on anticoagulants status post hip repair, which most likely will ultimate cause bleeding. I have discussed with Mr. Oro, he denies abdominal pain, he denies nausea or vomiting, he denies any actual itching also. He complains of continued pain to his "bottom," as well as some left arm pain, which he states is tolerable. PAST MEDICAL HISTORY: Positive for end-stage primary sclerosing cholangitis, autoimmune hepatitis, on a regimen of CellCept, prednisone, Imuran, and ursodiol; schizophrenia; GERD; peptic ulcer disease; ascites; spinal compression fractures; hypoalbuminemia secondary to liver disease; coagulopathy secondary to liver disease; dementia; aortic stenosis. PAST SURGICAL HISTORY: ERCP, hiatal hernia surgery, cholecystectomy. SOCIAL HISTORY: Past tobacco. Past alcohol. No illicits. He lives presently at [facility]. Prior to that, he lived at the [facility]. FAMILY HISTORY: Mother from pancreatic cancer. Siblings with known cirrhosis. ALLERGIES: NO KNOWN ALLERGIES. HOME MEDICATIONS: Tylenol, Fosamax, Augmentin, Imuran, vitamin D, Proscar, Lasix, multivitamin, CellCept, Invega, Protonix, MiraLax, prednisone, Aldactone, Ultram, trazodone, Alicia Forte, capsaicin and Santyl ointment. REVIEW OF SYSTEMS: A 10-point review of systems has been obtained with pertinent positives being addressed in the history of present illness. PERTINENT LABORATORY DATA: Sodium 129, potassium is 3.2, BUN is 18, creatinine 0.67. White count 11.7, hemoglobin 8.6, hematocrit 24.2. INR of 1.3. Total bilirubin 25.6, alkaline phosphatase 341, ALT 136, ammonia 34, AST 181. PHYSICAL EXAMINATION: VITAL SIGNS: Temperature 98.1, pulse is 62, respirations of 19, blood pressure is 102/54. NEURO: Reveals an awake, alert and oriented, chronically ill-appearing male, resting in bed. GENERAL: He is cooperative. He is in no acute distress. He has notable jaundice as well as scleral icterus. He has no asterixis noted. He is thin and frail with some cachexia and chronically ill appearing. NECK: No JVD. No palpable nodes. LUNGS: Diminished throughout with normal respiratory effort exhibited. CARDIOVASCULAR SYSTEM: Regular rate and rhythm. ABDOMEN: Soft, nondistended, nontender with active bowel sounds in all four quadrants. No Consultation Report [place] [address] [place]. [address] NAME: TIFFANIE ORO : 43 STATUS : ADM IN PAT#: [id number] AGE: 71 ADM/REG DATE : 01/19/17 MR#: [id number] REPORT SERV DATE: 01/20/17 DICTATED BY: MAMI ESPARZA DATE: 01/20/17 REPORT STATUS : Draft TRANSCRIBED BY: MODL DATE: 01/20/17 rebound or guarding elicited on exam. EXTREMITIES: No edema. Normal distal pulses. Left arm is noted to be in a sling. ASSESSMENT: 1. End-stage primary sclerosing cholangitis and autoimmune hepatitis, on CellCept, Imuran, prednisone, and ursodiol. 2. Worsening LFTs secondary to end-stage primary sclerosing cholangitis and autoimmune hepatitis. 3. Left hip fracture, for repair today. 4. Ascites, status post paracentesis at his last hospitalization. 5. History of left humerus fracture. 6. History of schizophrenia. 7. Coagulopathy secondary to liver dysfunction. 8. Hyponatremia. PLAN: 1. From a GI perspective, there is nothing left to offer Mr. Oro, this was established at his last hospitalization, and Hospice consult was recommended as this is end-stage primary sclerosing cholangitis. ERCP attempt was failed. PTC would not be recommended. He is on all appropriate meds and discussed with Dr. Carlos Eduardo Mosqueda at last hospitalization also. 2. The patient to have left hip repair today and to be placed on anticoagulant, which will likely ultimately cause issues with bleeding secondary to his synthetic liver dysfunction. I did discuss this with Mr. Oro. GI is going to sign off, we are available if needed. MAURICE/ROBINSON Mami ALICIA Mann / [id number] CC: Lowell Verduzco M.D.
--- NOTE | ~2017-01-19 | OP ---
Record Of Operation [facility] [address] [place] [place]. [address] NAME: TIFFANIE ORO : 43 STATUS : ADM IN PAT#: [id number] AGE: 71 ADM/REG DATE : 01/19/17 MR#: [id number] REPORT SERV DATE: 01/21/17 DICTATED BY: LEANDRA DAMON DATE: 01/20/17 REPORT STATUS : Draft TRANSCRIBED BY: ROBINSON DATE: 01/20/17 DATE OF PROCEDURE: 01/20/2017 PREOPERATIVE DIAGNOSIS: Left intertrochanteric femur fracture. POSTOPERATIVE DIAGNOSIS: Left intertrochanteric femur fracture. OPERATION: [place]/intertrochanteric femur fracture. SIDE: Left. CUSTOMER SUCCESS ADVOCATE: See chart. ESTIMATED BLOOD LOSS: About 100 mL. TOURNIQUET TIME: None. SPECIMENS: None. ANESTHESIA: See chart. PROCEDURE: The patient was taken to the preoperative holding area. The patient was appropriately identified, marked and the consent form carefully checked. The patient was taken then to the operating room and anesthetic was induced per the anesthesiologist. The patient was carefully positioned, carefully padded, prepped and draped on the fracture table. Prior to the surgical prep a closed reduction was obtained by closed method using fluoroscopic guidance. The patient was then prepped and draped in the usual sterile fashion. Using fluoroscopic guidance, a straight lateral incision was made. This was followed by electrocautery through the fat, the IT band and the vastus, staying towards the posterior portion of the lateral vastus to decrease the amount of muscle tissue that was cut through. Meticulous hemostasis was obtained with electrocautery. Lateral femoral cortex was exposed further with periosteal elevator and appropriate retraction. A guide was then used to place a guidewire basically in the center of the head on AP and lateral x-ray views. This was followed by depth gauge and then triple reamer. Lag screw was placed over the guidewire. The sliding plate was then placed and impacted and checked to be sure it was down snug. The plate was held with a plate clamp distally and reduction again checked. The screw holes in the plate were then filled with screws in the standard fashion with drill depth gauge and then self-tapping screw placement. The screws were then tightened by hand. All traction was released and the compression screw placed and tightened. Again x-ray views were checked to ascertain reduction and screw length. Record Of Operation [facility] [address] [place] [place]. [address] NAME: TIFFANIE ORO : 43 STATUS : ADM IN PAT#: [id number] AGE: 71 ADM/REG DATE : 01/19/17 MR#: [id number] REPORT SERV DATE: 01/21/17 DICTATED BY: LEANDRA DAMON DATE: 01/20/17 REPORT STATUS : Draft TRANSCRIBED BY: MODGabby DATE: 01/20/17 The wound was then irrigated and closed with sutures in the vastus. A medium drain was placed distally anteriorly between the vastus and the IT band, then sutured on the IT band, 2-0 subcutaneous, and dominic in the skin. Wound dressed sterilely. The patient was awakened and carefully transferred to the bed and transferred to the recovery room without incident. COUNTS: Correct. WTB/ROBINSON Lane Damon M.D. / [id number] CC: Tete Mccloud MD
--- NOTE | ~2017-01-19 | IDS ---
Interim Discharge Summary [facility] [address] [place] [place]. [address] NAME: TIFFANIE ORO : 43 STATUS : ADM IN [facility]#: [id number] AGE: 71 ADM/REG DATE : 01/19/17 MR#: [id number] REPORT SERV DATE: 01/23/17 DICTATED BY: ESPERANZA VERDUZCO DATE: 01/23/17 REPORT STATUS : Draft TRANSCRIBED BY: MODL DATE: 01/23/17 ADMISSION DATE: 01/19/2017 DISCHARGE DATE: CONSULTANTS: 1. W. Bennie Napoles M.D. 2. Heath Patel MD, GI. PROBLEM LIST: 1. Acute left hip fracture due to fall. 2. Recent left humeral fracture due to fall. 3. 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 4. Hyponatremia, mild. 5. Hyperkalemia, improved. 6. Mild aortic stenosis. 7. Chronic right bundle-branch block. 8. Schizophrenia with possible dementia. 9. Previous esophagitis and duodenal ulcer. 10.History of compression fractures of his thoracic and lumbar spine. HISTORY: This patient has been hospitalized in December and already back in the hospital here again. He was here 01/04/2017 through 01/12/2017 with end-stage primary sclerosing cholangitis. 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 GI says there is nothing further they can do for him. They recommended Palliative Care to see him. During that hospitalization, Dr. Wallace was involved with the patient and did have a limited DNR, but since the patient has gone back to the rehab, he is now full code again. He declined hospice at his last discharge. He is hospitalized now with falls and had left arm fracture around 01/04/2017 and he according to family, had not walked since then. Also sounds like he had another fall on the day prior to this admission. He was brought to the emergency room and was found to have a left hip fracture. CT of the patient on 01/04/2017 did not show any hip fracture. HOSPITAL COURSE: We have talked with GI, they state there is nothing further they can do. He is dying of his end-stage liver disease. I spoke at length on the phone initially with his brother, Olvin, about the fact that if the patient did not have the hip fracture repaired, he would be bed-bound with worsened pain for the rest of his days. We did talk about how the patient was higher risk perioperatively. The patient indicated he wanted to have a chance to stand and walk again and he himself agreed with the surgery and the brother did as well. The operative repair went well once 01/20/2017. The patient continues though with his underlying end-stage liver disease. He is extremely jaundiced with his total bilirubin 24.1. I have talked with the brother, Olvin, and brother, Michael, and I have explained to them that the patient's underlying liver disease is killing him and that I do not think he will live very much longer. They state that they Interim Discharge Summary [address] [place]. [address] NAME: TIFFANIE ORO : 43 STATUS : ADM IN [facility]#: [id number] AGE: 71 ADM/REG DATE : 01/19/17 MR#: [id number] REPORT SERV DATE: 01/23/17 DICTATED BY: ESPERANZA VERDUZCO DATE: 01/23/17 REPORT STATUS : Draft TRANSCRIBED BY: ROBINSON DATE: 01/23/17 understand it. The patient is being assessed by Physical Therapy to see if he might be able to go back to skilled rehab. It is unlikely that he will survive long given his underlying progressive liver problems though. Because of his moderate hyperkalemia, I have stopped his spironolactone for right now. We will follow up his ammonia level. I am going to hold his Lasix because he is not taking in that much oral fluids at the moment. He is on warfarin post hip fracture repair and that will have to be monitored very closely with his underlying liver disease. I am going to reconsult Palliative Care at this point in time to see if they can discuss further with the patient and brothers about DNR and hospice for this gentleman as it looks inevitable that he will soon. DONELL/ROBINSON Esperanza Verduzco M.D. / [id number] CC: Tete Mccloud MD
--- NOTE | ~2017-01-19 | HP ---
History And Physical [place] [id number] [place] [place]. [address] NAME: TIFFANIE ORO : 43 STATUS : ADM IN [facility]#: [id number] AGE: 71 ADM/REG DATE : 01/19/17 MR#: [id number] REPORT SERV DATE: 01/19/17 DICTATED BY: IRENE BLOOM DATE: 01/19/17 REPORT STATUS : Draft TRANSCRIBED BY: MODL DATE: 01/19/17 DATE OF ADMISSION: 01/19/2017 POINT OF ENTRY: [facility] Emergency Department. PRIMARY CARE PHYSICIAN: Dr. Blanc at the [place]. PRIMARY MONITORING SPECIALIST: Dr. Pereira. CHIEF COMPLAINT: Left hip pain and left hip fracture. HISTORY OF PRESENT ILLNESS: Mr. Oro is a 71-year-old gentleman with a history of primary sclerosing cholangitis as well as autoimmune hepatitis who presents to emergency department today with reports of persistent left hip and thigh pain with outside Radiology imaging concerning for left intertrochanteric hip fracture. The patient was admitted to the Hospitalist Service from 01/04/2017 through 01/12/2017 for mechanical fall with resulting left humeral fracture. At that time, he was seen by orthopedic surgery which recommended nonoperative management as well as by Gastroenterology for patient's new onset ascites as well as chronic liver disease. The patient underwent ERCP which reportedly showed diffuse stricturing as well as complete blockage of the common bile duct above the cystic duct. No endoscopic therapy was recommended. Dr. Wallace of Palliative Care was consulted during this hospital stay, and at this time, the patient declines hospice placement and still wished to remain a full code. He was discharged to [facility] [place] on 01/12/2017. The patient states that he has had persistent left hip and thigh pain for the last few weeks since his fall. He does state he did suffer a mechanical fall yesterday while at [facility] and since then has been wheelchair bound. He states that he was walking without assistance prior to this fall. A plain film of his pelvis and hip were obtained at [facility] which showed a left intertrochanteric hip fracture. There was some concern that this fracture may have been due to his original fall on 01/04/2017, however, per my review of CT of the abdomen and pelvis that was obtained during that time, radiology reported that there were no bony abnormalities of the pelvis at that time which calls into question timing of patient's left hip fracture. The patient denies any other complaints at this time. Initial evaluation in the emergency department notable for plain films that do confirm a left intertrochanteric hip fracture. Labs unfortunately are notable for worsening of his end-stage liver disease now with a bilirubin of 24.8 with worsening transaminase elevation. His ammonia level is 34 and INR is 1.3. The patient was subsequently admitted to the Hospitalist Service for further evaluation and management. PREVIOUS MEDICAL HISTORY: 1. Primary sclerosing cholangitis. History And Physical [address] [address] NAME: TIFFANIE ORO : 43 STATUS : ADM IN [facility]#: [id number] AGE: 71 ADM/REG DATE : 01/19/17 MR#: [id number] REPORT SERV DATE: 01/19/17 DICTATED BY: IRENE BLOOM DATE: 01/19/17 REPORT STATUS : Draft TRANSCRIBED BY: ROBINSON DATE: 01/19/17 2. Autoimmune hepatitis. 3. End-stage liver disease. 4. Coagulopathy of liver disease. 5. Severe hypoalbuminemia secondary to liver disease. 6. Mild aortic stenosis. 7. History of spinal compression fractures. 8. Gastroesophageal reflux disease and peptic ulcer disease. 9. Schizophrenia. SURGICAL HISTORY: 1. Cholecystectomy. 2. ERCP with stent placement in the past. ALLERGIES: NO KNOWN DRUG ALLERGIES. HOME MEDICATIONS: 1. Tylenol 325 mg q.4 hours p.r.n. 2. Fosamax 70 mg weekly. 3. Imuran 50 mg daily. 4. Vitamin D 1000 units daily. 5. Proscar 5 mg daily. 6. Lasix 20 mg b.i.d. 7. Multivitamin one tab daily. 8. CellCept 1000 mg b.i.d. 9. Invega 3 mg b.i.d. 10.Protonix 40 mg b.i.d. 11.MiraLAX 17 g daily. 12.Prednisone 5 mg daily. 13.Aldactone 50 mg b.i.d. 14.Tramadol 50 mg q.4 hours p.r.n. 15.Trazodone 75 mg at bedtime. 16.Ursodiol 500 mg b.i.d. 17.Capsaicin one application topical b.i.d. p.r.n. 18.Santyl topical ointment. SOCIAL HISTORY: Denies any tobacco, alcohol, or illicits. He is now residing at [facility] [place], status post his left humeral fracture, was previously at a nursing home for schizophrenia. FAMILY MEDICAL HISTORY: Mother with pancreatic cancer. Father with coronary artery disease. Siblings with history of hepatic cirrhosis. LABS AND IMAGIN. White count is 13.4, hemoglobin 9.3, hematocrit 27.7, and platelet count 322. INR 1.3. 2. Sodium is 129, potassium 3.7, chloride 95, carbon dioxide 21, BUN 23, creatinine 0.79, glucose is 79, calcium is 7.6, protein 5.8, albumin is 2.0, bilirubin is 24.8, ALT is 156, AST 198, alkaline phosphatase is 366. History And Physical [address] [address] NAME: TIFFANIE ORO : 43 STATUS : ADM IN [facility]#: [id number] AGE: 71 ADM/REG DATE : 01/19/17 MR#: [id number] REPORT SERV DATE: 01/19/17 DICTATED BY: IRENE BLOOM DATE: 01/19/17 REPORT STATUS : Draft TRANSCRIBED BY: ROBINSON DATE: 01/19/17 3. Ammonia level 34. 4. Chest x-ray per my review shows no acute cardiopulmonary evidence. 5. Plain films of the left hip does show an intertrochanteric hip fracture that is minimally displaced. PHYSICAL EXAMINATION: VITAL SIGNS: Temperature is 99.0 degrees Fahrenheit, pulse is 89, respirations 11, saturating 99% on room air, and blood pressure 96/51. GENERAL: The patient is awake, alert, and in no acute distress, resting comfortably in bed. He is a chronically ill-appearing elderly male. HEENT: Atraumatic and normocephalic. Moist mucous membranes. The patient has profound scleral icterus as well as jaundice of the oropharyngeal mucosa. NECK: No jugular venous distention. No carotid bruits. CARDIAC: Regular rate and rhythm. No murmurs or gallops. Normal S1, S2. LUNGS: Clear to auscultation bilaterally. No wheezes, rhonchi, or crackles. ABDOMEN: Soft, nontender, nondistended with good bowel sounds. Does have some positive ascitic fluid wave. EXTREMITIES: Warm, perfused. No cyanosis, clubbing, or edema. The patient's left lower extremity is shortened and internally rotated but neurovascularly intact distally. SKIN: Does have some jaundice of his sclera and oropharyngeal mucosa. PSYCH: Affect is appropriate. NEURO: Alert and oriented x3. Cranial nerves 2 through 12 grossly intact. Speech is normal. Gait not assessed. ASSESSMENT: Mr. Oro is a 71-year-old gentleman with history of primary sclerosing cholangitis and autoimmune hepatitis, recently admitted status post mechanical fall with left humeral fracture, now returned back to the ER for left hip pain and found to have a left intertrochanteric hip fracture. PROBLEM LIST: 1. Left intertrochanteric hip fracture. 2. Primary sclerosing cholangitis. 3. Autoimmune hepatitis. 4. Coagulopathy of liver disease. 5. End-stage liver disease. 6. Hyponatremia. 7. Leukocytosis. 8. Ammonia elevation without evidence of encephalopathy. PLAN: 1. Left intertrochanteric hip fracture. I am unsure of the timing of the occurrence of the patient's left hip fracture as CT of the abdomen and pelvis obtained during his previous admission was unremarkable for pelvic or hip fractures, and the patient was working with Physical Therapy during his hospital stay without any reported troubles. He does state he had a mechanical fall at [facility], which I am yet to confirm. Regardless, we will consult Orthopedic Surgery for assistance. I fear that patient's advanced liver disease may preclude him from surgical intervention, but we will defer History And Physical [address] [address] NAME: TIFFANIE ORO : 43 STATUS : ADM IN [facility]#: [id number] AGE: 71 ADM/REG DATE : 01/19/17 MR#: [id number] REPORT SERV DATE: 01/19/17 DICTATED BY: IRENE BLOOM DATE: 01/19/17 REPORT STATUS : Draft TRANSCRIBED BY: MODL DATE: 01/19/17 to orthopedic surgical consultation as well as a GI consult. We will provide supportive care with pain control. 2. End-stage liver disease with primary sclerosing cholangitis and autoimmune hepatitis. Unfortunately, the patient's liver function continues to worsen as his bilirubin continues to climb and his transaminases are mildly elevated as well above his recent baseline. The patient underwent ERCP during his previous hospitalization which did not reveal any potential endoscopic therapy. He did see Palliative Care during the last hospital stay but declined hospice placement and states he still wants to be a full code. We will consult Gastroenterology for assistance. 3. Leukocytosis, likely stress response. Chest x-ray is clear. We will check a urinalysis as well as procalcitonin for completeness and continue to monitor. 4. Coagulopathy of liver disease. The patient's INR here is 1.3. During his previous stay, it was elevated and did not respond to vitamin K and only finally responded to FFP in order to proceed with procedures. We will continue to monitor. 5. Elevated ammonia level. The patient's ammonia level is mildly elevated at 34. He does not have any obvious evidence of hepatic encephalopathy at this time, but we will place him on some low-dose lactulose. 6. DVT prophylaxis. TAVON's and SCD's given his history of coagulopathy and bleeding risk. CODE STATUS: The patient again reinforced that he wants to be a full code. JCB/MODL Irene Bloom MD / [id number] CC: Tete Mccloud Dr., MD
--- NOTE | ~2017-01-19 | HP ---
History And Physical [address] [address] NAME: TIFFANIE ORO : 43 STATUS : ADM IN [facility]#: [id number] AGE: 71 ADM/REG DATE : 01/19/17 MR#: [id number] REPORT SERV DATE: 01/20/17 DICTATED BY: LEANDRA DAMON DATE: 01/20/17 REPORT STATUS : Draft TRANSCRIBED BY: MODL DATE: 01/20/17 DATE OF ADMISSION: 01/19/2017 CHIEF COMPLAINT: Left hip pain. HISTORY: This is a 71-year-old male who yesterday fell and injured his left hip. He denies pain or injury elsewhere. He has been wearing a sling, but it is unclear why that is. ALLERGIES: NONE. MEDICATIONS: See chart. PAST MEDICAL HISTORY: Dementia, Lopez's palsy, incontinence, GI bleed, history of hepatitis, cholangitis, psychosis, schizophrenia, and anemia. PAST SURGICAL HISTORY: EGD, ERCP 2012. SOCIAL HISTORY: Cigarettes, alcohol, and illicit drug use reported, but he is a very difficult historian. FAMILY HISTORY: Noncontributory, again difficult historian. REVIEW OF SYSTEMS: No recent illnesses acutely that I could discern, but multiple medical problems as noted above. PHYSICAL EXAMINATION: GENERAL: He is alert and pleasant. HEENT: Missing most of his teeth. He has icteric sclerae. NECK: Supple, otherwise atraumatic and normocephalic. CHEST: Symmetric. EXTREMITIES: Both upper extremities and right lower extremity without acute trauma, though again, left upper extremity sling for reasons will be discerned hopefully later from the chart. Left lower extremity externally rotated. Skin is intact. Compartment supple. Thready pulses. X-RAY: Left intertrochanteric femur fracture. ASSESSMENT: Left intertrochanteric femur fracture. PLAN: ORIF. Risks, benefits etc. explained. The patient wishes to proceed. WTB/MODL History And Physical [address] [address] NAME: TIFFANIE ORO : 43 STATUS : ADM IN [facility]#: [id number] AGE: 71 ADM/REG DATE : 01/19/17 MR#: [id number] REPORT SERV DATE: 01/20/17 DICTATED BY: LEANDRA DAMON DATE: 01/20/17 REPORT STATUS : Draft TRANSCRIBED BY: ROBINSON DATE: 01/20/17 Lane Damon M.D. / [id number] CC: Tete Mccloud MD
[~2017-01-19 18:35] MED LIST changes: +CAPSAICIN 0.025% TOP; +CENTRUM PO; +FOSAMAX70 MG PO; +URSO FORTE500 MG PO; +VITAMIN D1000 UNI1 PO
[2017-01-19 20:23] LABS: BASOPHILS 0.1 %; BASOPHILS ABSOLUTE 0.01 10/3/uL (0.0-0.16); EOSINOPHILS 0 %; ER CBC TAT 0 Hrs 09 Mins; HEMATOCRIT 27.7 % (40.0-51.0); HEMOGLOBIN 9.3 g/dL (13.6-17.8); IMMATURE GRANULOCYTES 14.3 %; IMMATURE GRANULOCYTES ABSOLUTE 1.91 10/3/uL (0.0-0.11); LYMPHOCYTES 2.4 %; LYMPHOCYTES ABSOLUTE 0.32 10/3/uL (0.67-4.30); MEAN CORPUSCULAR HEMOGLOB 29.2 pg (26.0-34.0); MEAN CORPUSCULAR VOLUME 86.8 fL (80-100); MEAN PLATELET VOLUME 10.1 fL (9.2-13.0); MONOCYTES 3.7 %; MONOCYTES ABSOLUTE 0.49 10/3/uL (0.21-1.20); NEUTROPHILS 79.5 %; NEUTROPHILS ABSOLUTE 10.62 10/3/uL (2.02-8.40); NUCLEATED RED BLOOD CELLS 0.2 /100WBC (0-0); PLATELET COUNT 322 10/3/uL (150-400); RED CELL COUNT 3.19 10/6/uL (4.7-6.1); WHITE BLOOD CELLS 13.4 10/3/uL (4.5-10.5)
[2017-01-19 20:24] LABS: MANUAL DIFF NO %; MEAN CORPUS HGB CONC 33.6 g/dL (32.0-36.0)
[2017-01-19 20:30] LABS: INTERNATIONAL NORMAL RATI 1.3 UNITS (-); PARTIAL THROMBO TIME 38.2 SEC (22.5-37.2); PROTIME (NOT ORD) 15.8 SEC (12.0-14.5)
[2017-01-19 20:46] LABS: BUN (BLOOD UREA NITROGEN) 23 MG/DL (6-23); CALCIUM, SERUM 7.6 MG/DL (8.5-10.4); CHLORIDE, SERUM 95 MMOL/L (96-112); CO2 (CARBON DIOXIDE) 21 MMOL/L (24-34); CREATININE 0.79 MG/DL (0.70-1.30); GFR AFRICAN AMERICAN 104 ML/MIN (>=60); GFR NON AFRICAN AMERICAN 90 ML/MIN (>=60); GLUCOSE, SERUM 79 MG/DL (60-99); POTASSIUM, SERUM 3.7 MMOL/L (3.5-5.3); SGPT(ALT) 156 U/L (5-65); SODIUM, SERUM 129 MMOL/L (135-148)
[2017-01-19 20:47] LABS: A/G RATIO 0.5 (0.7-1.9); ALKALINE PHOSPHATASE 366 U/L (45-117); GLOBULIN 3.8 G/DL (2.5-4.1); SGOT(AST) 198 U/L (5-40); TOTAL BILIRUBIN 24.8 MG/DL (0-1.2); TOTAL PROTEIN 5.8 G/DL (6.0-8.5)
[2017-01-19 20:50] LABS: BAND NEUTROPHILS 20 %; ER DIFF TAT 0 Hrs 36 Mins; IMMATURE GRANS ABSOLUTE (CALC) 0.13 10/3/uL (0.0-0.11); LYMPHOCYTES 4 %; LYMPHOCYTES ABSOLUTE (CALC) 0.54 10/3/uL (0.67-4.30); METAMYELOCYTES 1 %; MONOCYTES 2 %; MONOCYTES ABSOLUTE (CALC) 0.27 10/3/uL (0.21-1.20); NEUTROPHILS ABSOLUTE (CALC) 12.46 10/3/uL (2.02-8.40); SEGMENTED NEUTROPHIL (0) 73 %; TARGET CELLS FEW (3-10/OIF) (0-1/OIF); TOTAL NUCLEATED CELLS 100
[2017-01-19 20:51] LABS: SCHISTOCYTES OCC (0-2/OIF)
[2017-01-19 20:52] LABS: PLATELET ESTIMATE ADQ (ADEQUATE); TOXIC GRANULATION 1+; VACUOLATED NEUTROPHILES OCC
[2017-01-19] MEDS ORDERED: ULTRAM50 PO (21:52)
[2017-01-19] MEDS ORDERED: T PEG (21:53)
[2017-01-19] MEDS ORDERED: CAPSAICIN 0.025% TOP (21:53)
[2017-01-19] MEDS ORDERED: P5 PO (21:56)
[2017-01-19] MEDS ORDERED: SANTYL OINTMENT TOP (21:56)
[2017-01-19] MEDS ORDERED: URSO FORTE500 MG PO (21:57)
[2017-01-19] MEDS ORDERED: SPIRO50 PO (21:57)
[2017-01-19] MEDS ORDERED: TRAZODONE150 MG PO (21:57)
[2017-01-19] MEDS ORDERED: VITAMIN D1000 UNI1 PO (21:57)
[2017-01-19] MEDS ORDERED: MULTIVIT/MIN PO (21:58)
[2017-01-19] MEDS ORDERED: MIRALAX POWDER1 PKT PO (21:58)
[2017-01-19] MEDS ORDERED: CELLCEPT5 PO (21:58)
[2017-01-19] MEDS ORDERED: PROTONIX PO (21:59)
[2017-01-19] MEDS ORDERED: FOSAMAX70 MG PO (21:59)
[2017-01-19] MEDS ORDERED: AUG875 PO (22:00)
[2017-01-19] MEDS ORDERED: L20 PO (22:00)
[2017-01-19] MEDS ORDERED: PROSCAR5 PO (22:00)
[2017-01-19] MEDS ORDERED: IMU PO (22:00)
[2017-01-19] MEDS ORDERED: INVEGA3 MG PO (22:07)
[2017-01-19 23:29] LABS: PROCALCITONIN 0.89 ng/mL (<0.5)
[2017-01-20 05:48] LABS: HEMOGLOBIN 8.6 g/dL (13.6-17.8); MEAN CORPUSCULAR HEMOGLOB 30.5 pg (26.0-34.0); MEAN CORPUSCULAR VOLUME 85.8 fL (80-100); PLATELET COUNT 342 10/3/uL (150-400); RBC DISTRIBUTION WIDTH 27.7 % (12.0-16.0); RED CELL COUNT 2.82 10/6/uL (4.7-6.1); WHITE BLOOD CELLS 11.7 10/3/uL (4.5-10.5)
[2017-01-20 05:50] LABS: HEMATOCRIT 24.2 % (40.0-51.0); MANUAL DIFF YES %; MEAN CORPUS HGB CONC 35.5 g/dL (32.0-36.0)
[2017-01-20 05:59] LABS: INTERNATIONAL NORMAL RATI 1.3 UNITS (-); PROTIME (NOT ORD) 16.2 SEC (12.0-14.5)
[2017-01-20 06:16] LABS: ALBUMIN 2.3 G/DL (3.5-5.0); CALCIUM, SERUM 7.8 MG/DL (8.5-10.4); CHLORIDE, SERUM 96 MMOL/L (96-112); CO2 (CARBON DIOXIDE) 20 MMOL/L (24-34); GLUCOSE, SERUM 66 MG/DL (60-99); POTASSIUM, SERUM 3.2 MMOL/L (3.5-5.3); SGOT(AST) 181 U/L (5-40); SGPT(ALT) 136 U/L (5-65); SODIUM, SERUM 129 MMOL/L (135-148)
[2017-01-20 06:18] LABS: A/G RATIO 0.7 (0.7-1.9); ALKALINE PHOSPHATASE 341 U/L (45-117); BUN (BLOOD UREA NITROGEN) 18 MG/DL (6-23); CREATININE 0.67 MG/DL (0.70-1.30); GFR AFRICAN AMERICAN 111 ML/MIN (>=60); GFR NON AFRICAN AMERICAN 96 ML/MIN (>=60); GLOBULIN 3.2 G/DL (2.5-4.1); TOTAL BILIRUBIN 25.6 MG/DL (0-1.2); TOTAL PROTEIN 5.5 G/DL (6.0-8.5)
[2017-01-20 07:15] LABS: BAND NEUTROPHILS 16 %; HYPOCHROMIA 1+ (3-10/OIF) (0-2/OIF); LYMPHOCYTES 6 %; MONOCYTES 2 %; MONOCYTES ABSOLUTE (CALC) 0.23 10/3/uL (0.21-1.20); NEUTROPHILS ABSOLUTE (CALC) 10.76 10/3/uL (2.02-8.40); PLATELET ESTIMATE ADQ (ADEQUATE); SEGMENTED NEUTROPHIL (0) 76 %; TARGET CELLS FEW (3-10/OIF) (0-1/OIF); TOTAL NUCLEATED CELLS 100
[2017-01-20 07:48] LABS: PROCALCITONIN 0.77 ng/mL (<0.5)
[2017-01-21 07:28] LABS: INTERNATIONAL NORMAL RATI 1.3 UNITS (-); PROTIME (NOT ORD) 16.3 SEC (12.0-14.5)
[2017-01-21 07:42] LABS: BUN (BLOOD UREA NITROGEN) 13 MG/DL (6-23); CALCIUM, SERUM 7.9 MG/DL (8.5-10.4); CHLORIDE, SERUM 99 MMOL/L (96-112); CO2 (CARBON DIOXIDE) 19 MMOL/L (24-34); GLUCOSE, SERUM 55 MG/DL (60-99); POTASSIUM, SERUM 3.4 MMOL/L (3.5-5.3); SGOT(AST) 209 U/L (5-40); SGPT(ALT) 122 U/L (5-65); SODIUM, SERUM 131 MMOL/L (135-148)
[2017-01-21 07:43] LABS: A/G RATIO 0.6 (0.7-1.9); ALKALINE PHOSPHATASE 371 U/L (45-117); GLOBULIN 3.3 G/DL (2.5-4.1); TOTAL BILIRUBIN 24.1 MG/DL (0-1.2); TOTAL PROTEIN 5.3 G/DL (6.0-8.5)
[2017-01-21 08:15] LABS: HEMATOCRIT 26.6 % (40.0-51.0); HEMOGLOBIN 9.2 g/dL (13.6-17.8); MEAN CORPUS HGB CONC 34.6 g/dL (32.0-36.0); MEAN CORPUSCULAR HEMOGLOB 30.3 pg (26.0-34.0); MEAN CORPUSCULAR VOLUME 87.5 fL (80-100); MEAN PLATELET VOLUME 9.7 fL (9.2-13.0); PLATELET COUNT 322 10/3/uL (150-400); RBC DISTRIBUTION WIDTH 27.9 % (12.0-16.0); RED CELL COUNT 3.04 10/6/uL (4.7-6.1); WHITE BLOOD CELLS 8.6 10/3/uL (4.5-10.5)
[2017-01-21 08:19] LABS: MANUAL DIFF YES %
[2017-01-21 08:32] LABS: BAND NEUTROPHILS 16 %; EOSINOPHILS 2 %; EOSINOPHILS ABSOLUTE (CALC) 0.17 10/3/uL (0.0-0.53); LYMPHOCYTES 4 %; LYMPHOCYTES ABSOLUTE (CALC) 0.34 10/3/uL (0.67-4.30); NEUTROPHILS ABSOLUTE (CALC) 8.08 10/3/uL (2.02-8.40); SEGMENTED NEUTROPHIL (0) 78 %; TARGET CELLS FEW (3-10/OIF) (0-1/OIF); TOTAL NUCLEATED CELLS 100
[2017-01-21 08:33] LABS: PLATELET ESTIMATE ADQ (ADEQUATE); POLYCHROMASIA 1+ (2-5/OIF) (0-1/OIF)
[2017-01-21 10:32] LABS: BUN (BLOOD UREA NITROGEN) 13 MG/DL (6-23); CALCIUM, SERUM 8.1 MG/DL (8.5-10.4); CHLORIDE, SERUM 102 MMOL/L (96-112); CO2 (CARBON DIOXIDE) 17 MMOL/L (24-34); SODIUM, SERUM 133 MMOL/L (135-148)
[2017-01-21 10:36] LABS: CREATININE 0.69 MG/DL (0.70-1.30); GFR AFRICAN AMERICAN 110 ML/MIN (>=60); GFR NON AFRICAN AMERICAN 95 ML/MIN (>=60); GLUCOSE, SERUM 67 MG/DL (60-99)
[2017-01-21 10:45] LABS: CREATININE 0.69 MG/DL (0.70-1.30); GFR AFRICAN AMERICAN 110 ML/MIN (>=60); GFR NON AFRICAN AMERICAN 95 ML/MIN (>=60)
[2017-01-22 06:53] LABS: HEMATOCRIT 27.2 % (40.0-51.0); HEMOGLOBIN 9.1 g/dL (13.6-17.8); MEAN CORPUS HGB CONC 33.5 g/dL (32.0-36.0); MEAN CORPUSCULAR VOLUME 89.8 fL (80-100); PLATELET COUNT 312 10/3/uL (150-400); RBC DISTRIBUTION WIDTH 28.5 % (12.0-16.0); RED CELL COUNT 3.03 10/6/uL (4.7-6.1); WHITE BLOOD CELLS 10.1 10/3/uL (4.5-10.5)
[2017-01-22 06:54] LABS: MANUAL DIFF YES %
[2017-01-22 07:06] LABS: CALCIUM, SERUM 8.3 MG/DL (8.5-10.4); CHLORIDE, SERUM 101 MMOL/L (96-112); CO2 (CARBON DIOXIDE) 16 MMOL/L (24-34); POTASSIUM, SERUM 5.8 MMOL/L (3.5-5.3); SODIUM, SERUM 128 MMOL/L (135-148)
[2017-01-22 07:07] LABS: BUN (BLOOD UREA NITROGEN) 18 MG/DL (6-23); CREATININE 0.65 MG/DL (0.70-1.30); GFR AFRICAN AMERICAN 113 ML/MIN (>=60); GFR NON AFRICAN AMERICAN 97 ML/MIN (>=60); GLUCOSE, SERUM 106 MG/DL (60-99)
[2017-01-22 07:31] LABS: BAND NEUTROPHILS 18 %; IMMATURE GRANS ABSOLUTE (CALC) 0.61 10/3/uL (0.0-0.11); LYMPHOCYTES 5 %; LYMPHOCYTES ABSOLUTE (CALC) 0.51 10/3/uL (0.67-4.30); METAMYELOCYTES 6 %; MONOCYTES 4 %; NEUTROPHILS ABSOLUTE (CALC) 8.59 10/3/uL (2.02-8.40); PLATELET ESTIMATE ADQ (ADEQUATE); SCHISTOCYTES OCC (0-2/OIF); SEGMENTED NEUTROPHIL (0) 67 %; TARGET CELLS FEW (3-10/OIF) (0-1/OIF); TOTAL NUCLEATED CELLS 100
[2017-01-22 13:18] LABS: INTERNATIONAL NORMAL RATI 1.9 UNITS (-)
[2017-01-22 13:20] LABS: PROTIME (NOT ORD) 21.2 SEC (12.0-14.5)
[2017-01-23 06:31] LABS: CALCIUM, SERUM 8.4 MG/DL (8.5-10.4); CHLORIDE, SERUM 94 MMOL/L (96-112); SODIUM, SERUM 129 MMOL/L (135-148)
[2017-01-23 06:33] LABS: BUN (BLOOD UREA NITROGEN) 23 MG/DL (6-23); CO2 (CARBON DIOXIDE) 20 MMOL/L (24-34); POTASSIUM, SERUM 4.6 MMOL/L (3.5-5.3)
[2017-01-23 06:34] LABS: CREATININE 0.75 MG/DL (0.70-1.30); GFR AFRICAN AMERICAN 106 ML/MIN (>=60); GFR NON AFRICAN AMERICAN 92 ML/MIN (>=60); GLUCOSE, SERUM 67 MG/DL (60-99)
[2017-01-23 06:38] LABS: HEMATOCRIT 28.6 % (40.0-51.0); MEAN CORPUSCULAR HEMOGLOB 30.3 pg (26.0-34.0); MEAN PLATELET VOLUME 9.7 fL (9.2-13.0); PLATELET COUNT 349 10/3/uL (150-400); RBC DISTRIBUTION WIDTH 28.5 % (12.0-16.0); WHITE BLOOD CELLS 8.4 10/3/uL (4.5-10.5)
[2017-01-23 06:49] LABS: INTERNATIONAL NORMAL RATI 2.5 UNITS (-)
[2017-01-23 06:52] LABS: MANUAL DIFF YES %; MEAN CORPUSCULAR VOLUME 86.7 fL (80-100)
[2017-01-23 07:46] LABS: BAND NEUTROPHILS 11 %; LYMPHOCYTES 10 %; LYMPHOCYTES ABSOLUTE (CALC) 0.84 10/3/uL (0.67-4.30); MONOCYTES 4 %; MONOCYTES ABSOLUTE (CALC) 0.34 10/3/uL (0.21-1.20); NEUTROPHILS ABSOLUTE (CALC) 7.22 10/3/uL (2.02-8.40); PLATELET ESTIMATE ADQ (ADEQUATE); SEGMENTED NEUTROPHIL (0) 75 %; TOTAL NUCLEATED CELLS 100
[2017-01-23 07:48] LABS: BURR CELLS 1+ (3-10/OIF) (0-2/OIF)
[2017-01-23 07:49] LABS: SCHISTOCYTES FEW (3-10/OIF)
[2017-01-24 03:31] LABS: ASCORBIC ACID (UR NOT ORDER) NEG (NEG); BILIRUBIN, URINE MODERATE (NEG); KETONE, URINE NEGATIVE (NEG); LEUKOCYTE ESTERASE(NOT OR NEG (NEG); WBC (NOT ORDERED) (RFLEX) 5 (0-5)
[2017-01-24 06:46] LABS: INTERNATIONAL NORMAL RATI 3.1 UNITS (-)
[2017-01-24 06:47] LABS: PROTIME (NOT ORD) 31.7 SEC (12.0-14.5)
[2017-01-24 06:54] LABS: HEMATOCRIT 26.9 % (40.0-51.0); HEMOGLOBIN 9.7 g/dL (13.6-17.8); MANUAL DIFF YES %; MEAN CORPUS HGB CONC 36.1 g/dL (32.0-36.0); MEAN CORPUSCULAR HEMOGLOB 31.4 pg (26.0-34.0); MEAN CORPUSCULAR VOLUME 87.1 fL (80-100); MEAN PLATELET VOLUME 10.3 fL (9.2-13.0); NUCLEATED RED BLOOD CELLS 0.5 /100WBC (0-0); PLATELET COUNT 303 10/3/uL (150-400); RBC DISTRIBUTION WIDTH 28.7 % (12.0-16.0); RED CELL COUNT 3.09 10/6/uL (4.7-6.1); WHITE BLOOD CELLS 8.5 10/3/uL (4.5-10.5)
[2017-01-24 07:07] LABS: ALBUMIN 1.9 G/DL (3.5-5.0); BUN (BLOOD UREA NITROGEN) 22 MG/DL (6-23); CHLORIDE, SERUM 102 MMOL/L (96-112); CO2 (CARBON DIOXIDE) 21 MMOL/L (24-34); GLUCOSE, SERUM 71 MG/DL (60-99); POTASSIUM, SERUM 3.9 MMOL/L (3.5-5.3); SGOT(AST) 266 U/L (5-40); SGPT(ALT) 170 U/L (5-65); SODIUM, SERUM 133 MMOL/L (135-148)
[2017-01-24 07:08] LABS: A/G RATIO 0.5 (0.7-1.9); ALKALINE PHOSPHATASE 515 U/L (45-117); CREATININE 0.66 MG/DL (0.70-1.30); GFR AFRICAN AMERICAN 112 ML/MIN (>=60); GFR NON AFRICAN AMERICAN 97 ML/MIN (>=60); GLOBULIN 3.7 G/DL (2.5-4.1); TOTAL PROTEIN 5.6 G/DL (6.0-8.5)
[2017-01-24 07:20] LABS: BAND NEUTROPHILS 10 %; EOSINOPHILS 2 %; EOSINOPHILS ABSOLUTE (CALC) 0.17 10/3/uL (0.0-0.53); IMMATURE GRANS ABSOLUTE (CALC) 0.68 10/3/uL (0.0-0.11); LYMPHOCYTES 5 %; LYMPHOCYTES ABSOLUTE (CALC) 0.43 10/3/uL (0.67-4.30); METAMYELOCYTES 5 %; MONOCYTES 5 %; MONOCYTES ABSOLUTE (CALC) 0.43 10/3/uL (0.21-1.20); MYELOCYTES 3 %; PLATELET ESTIMATE ADQ (ADEQUATE); POIKILOCYTOSIS 1+ (5-10/OIF) (0-5/OIF); SEGMENTED NEUTROPHIL (0) 70 %; TOTAL NUCLEATED CELLS 100
[2017-01-24 07:21] LABS: ANISOCYTOSIS 4+ (>50/OIF) (0-5/OIF); TARGET CELLS FEW (3-10/OIF) (0-1/OIF)
[2017-01-24 10:40] LABS: RETICULOCYTE COUNT 3.8 % (0.5-2.9); RETICULOCYTE COUNT ABSOLUTE 115.7 10/3/uL (20.2-119.8)
[2017-01-24 10:46] LABS: % IRON SAT 16 % (20-50); IRON BINDING CAPACITY 231 MCG/DL (250-450); IRON, SERUM 36 MCG/DL (35-150)
[2017-01-24 11:05] LABS: FERRITIN 455 NG/ML (26-388)
[2017-01-24 17:05] LABS: WBC (NOT ORDERED) (RFLEX) 0 (0-5)
[2017-01-24 17:18] LABS: ASCORBIC ACID (UR NOT ORDER) NEG (NEG); BILIRUBIN, URINE MODERATE (NEG); KETONE, URINE NEGATIVE (NEG); LEUKOCYTE ESTERASE(NOT OR NEG (NEG)
== END 2017-01-25 18:19 | DRG 481 ==
LOC: ER 18:35 → 1SO 22:48
PROVIDERS: Emergency Medicine; Hospitalist; Internal Medicine; Nurse Practitioner Family; Physical Medicine & Rehabilitation; Specialist
PROC: 0QS704Z Reposition Left Upper Femur with Internal Fixation Device, Open Approach (ICD-10-PCS; principal; 2017-01-20 16:15)
DX: S72.142A Displaced intertrochanteric fracture of left femur, initial encounter for closed fracture (principal); E87.1 Hypo-osmolality and hyponatremia; K83.0 Cholangitis; D68.4 Acquired coagulation factor deficiency; E87.5 Hyperkalemia; F03.90 Unspecified dementia, unspecified severity, without behavioral disturbance, psychotic disturbance, mood disturbance, and anxiety; D63.8 Anemia in other chronic diseases classified elsewhere; K72.90 Hepatic failure, unspecified without coma; F20.9 Schizophrenia, unspecified; Z51.5 Encounter for palliative care; Z66 Do not resuscitate; I35.0 Nonrheumatic aortic (valve) stenosis; I45.10 Unspecified right bundle-branch block; K75.4 Autoimmune hepatitis; K21.9 Gastro-esophageal reflux disease without esophagitis; W18.30XA Fall on same level, unspecified, initial encounter; Z87.891 Personal history of nicotine dependence; Z79.899 Other long term (current) drug therapy; Z87.11 Personal history of peptic ulcer disease
CPT/HCPCS: 71010; 73502-LT; 74022; 76000; 80048; 80053; 81001; 82140; 82728; 83540; 83550; 84145; 85025; 85045; 85610; 85730; 87040; 97110-GO; 97110-GP; 97162-GP; 97165-GO; 97530-GP; 99285; A9270-GY; C1713; J0690; J1885; J2274; J2370; J2405; J2795; J3010; J7500; P9047

== ENCOUNTER 2017-01-30 21:42 | Inpatient (IN) | payer MEDICARE, OTHER ==
--- NOTE | ~2017-01-30 | CN ---
Consultation Report [facility] [address] [place] [place]. [address] NAME: TIFFANIE ORO : 43 STATUS : ADM IN [facility]#: [id number] AGE: 71 ADM/REG DATE : 01/30/17 MR#: [id number] REPORT SERV DATE: 01/31/17 DICTATED BY: GÓMEZ WALLACE DATE: 01/31/17 REPORT STATUS : Draft TRANSCRIBED BY: MODL DATE: 01/31/17 PALLIATIVE CARE CONSULTATION DATE OF CONSULTATION: 01/31/2017 HISTORY OF PRESENT ILLNESS: Tiffanie has been seen by Palliative Care Services on several occasions both in December when he evidently went to rehab and subsequently in January when he returned. He has been, after my discussion with him, made DNR x2. Unfortunately at the alf, when his blood pressure began to drop at this time after being discharged on 01/25, his DNR was felt to not reflect the level of care the family expected and he was brought back to the hospital. Hospice had never been involved in his care. Unfortunately, Tiffanie is a very poor historian and has been for some time due to a number of medical comorbidities. Fortunately, I had the opportunity to see him today in the presence of his twin brother, Olvin, who is by record his conservator as well as another brother and other family members. An extensive discussion regarding his care needs and his current status were carried out. The patient is now readmitted on 01/31 with hypotension and as a full code. Mr. Oro suffers predominantly from primary biliary sclerosing cholangitis and cirrhosis with liver failure. He also has obstruction of his common bile duct making any form of intervention untenable. He is not a transplant candidate. On 01/21/2017, he underwent a left hip fracture repair. He was subsequently sent to the alf because he was not felt to be a good rehab candidate. There, his condition declined slightly and he was brought back to the hospital. His past medical history also includes schizophrenia; autoimmune hepatitis; multiple spinal compression fractures documented in 2012; dementia, multifactorial; and a remote right leg fracture. SOCIAL HISTORY: He was living in the [facility], but subsequently has required alf placement and rehab therapy there so he can return. He has prior alcohol use probably on the order of a quart of beer a day according to Dr. Verduzco's [facility] in 2015 and he stopped drinking in 2001. He was a smoker of uncertain quantity through 2011. As noted above, his brother, Olvin, is listed as the conservator. There is no history of illicit drug use. FAMILY HISTORY: Mother of complications of pancreatic cancer. Father had heart disease. Question of whether siblings have been reported as having mental health issues is noted in the record. REVIEW OF SYSTEMS: Consultation Report [address] [place]. [address] NAME: TIFFANIE ORO : 43 STATUS : ADM IN [facility]#: [id number] AGE: 71 ADM/REG DATE : 01/30/17 MR#: [id number] REPORT SERV DATE: 01/31/17 DICTATED BY: GÓMEZ WALLACE DATE: 01/31/17 REPORT STATUS : Draft TRANSCRIBED BY: ROBINSON DATE: 01/31/17 His system review includes declining appetite, decreased functional status, resistance to therapy, and a progressive sacral wound. He is certainly progressing and having more debility. On both 01/11 and 01/24, I executed DNR post forms with him. The information was not made available to me that he had a conservator at that time. LABORATORY DATA: Significant laboratory data at this time includes a bilirubin of 21.4 and INR of 1.5. His CO2 is 13, ammonia 43. Procalcitonin 1.29. His creatinine is up to 1.23, which baseline is about 0.7 to 0.8. Albumin is 1.4. Extensive discussion with the family regarding their understanding of his disease, his terminal prognosis, and care options was held. This will be summarized below. PHYSICAL EXAMINATION: GENERAL: Exam today shows an awake, relatively alert fellow who gives two to three word answers, some of which are appropriate. Generally, we have anicteric, cachectic, chronically ill-appearing gentleman, who is not particularly conversant. VITAL SIGNS: His blood pressure is 98/50 with fluids and colloid support. His pulse is 70 and regular, appears to be a sinus mechanism. Respiratory rate is 16 and not labored. He weighs 49 kilos with BMI calculated at 17. HEENT: Head normocephalic. Eyes show equal, sluggish pupils with clear dense icterus. His mouth has minimal dentition. His trachea is midline. There is obvious muscle wasting. He has clear frontal atrophy. LUNGS: Show coarse clear breath sounds decreased in both bases. No wheezes. HEART: Regular rate and rhythm. S1 and S2. I do not hear any murmurs. Pulses are 2+ and symmetrical. ABDOMEN: Somewhat protuberant. There is a strong suggestion of a fluid wave. His wound on his sacrum is dressed and I did not examine it. EXTREMITIES: Wasted with marked atrophy of musculature. SKIN: Turgor is moderate to poor. MANAGER OF APPLICATIONS DEVELOPMENT: The patient will not necessarily cooperate with a motor examination. He has two to three word answers, some of which as I noted were not totally appropriate. Overall, cognitively, I think he is a bit worse than the last time I saw him. IMPRESSION, SUMMARY, AND RECOMMENDATIONS: Mr. Oro is a gentleman whose family seems to be oblivious to the fact that he has a terminal disease. They initially are trying to honor what they feel his request was that "whatever you can do to keep me here is fine." I have explained that their interventions were simply not appropriate for his condition and should not be performed. We reviewed for example that if his kidneys were to fail, dialysis would not be an option. In addition, CPR, resuscitation, intubation, and ventilation would not be offered given his current terminal status. With some significant discussion on this was grudgingly accepted by the family. The appropriate orders were then written. Since he is not a transplant candidate and really does not have any therapeutic options available to him, I think hydrating him and returning him to the alf with the understanding that Consultation Report [address] [place]. [address] NAME: TIFFANIE ORO : 43 STATUS : ADM IN [facility]#: [id number] AGE: 71 ADM/REG DATE : 01/30/17 MR#: [id number] REPORT SERV DATE: 01/31/17 DICTATED BY: GÓMEZ WALLACE DATE: 01/31/17 REPORT STATUS : Draft TRANSCRIBED BY: MODGabby DATE: 01/31/17 he probably does not need to come back here again may have to be very clearly spelled out for the family, so that readmission is avoided. His chemical parameters if nothing else are relatively stable to may be a bit worse. I am concerned about his CO2 level of 13 and his rise in creatinine. A total of 75 minutes were spent with the patient, family, and the records in order to prepare this report. EVA/ROBINSON Gómez Wallace M.D. / [id number] CC: Jerald Brock MD
--- NOTE | ~2017-01-30 | DS ---
Discharge Summary [facility] [address] [facility] [place]. [address] NAME: TIFFANIE ORO : 43 STATUS : DIS IN PAT#: [id number] AGE: 71 ADM/REG DATE : 01/30/17 MR#: [id number] REPORT SERV DATE: 02/03/17 DICTATED BY: DATE: REPORT STATUS : Draft TRANSCRIBED BY: MODL DATE: 02/02/17 ADMISSION DATE: 01/30/2017 DISCHARGE DATE: 02/01/2017 DISCHARGE DIAGNOSES: 1. Hypotension. 2. Primary sclerosing cholangitis. 3. End-stage liver disease. 4. Hyponatremia. 5. Metabolic acidosis. 6. Acute kidney injury. 7. Severe protein calorie malnutrition secondary to end-stage liver disease. 8. Multiple skin ulcers. 9. Hypoalbuminemia. CONSULTATIONS: Dr. Almonte with Palliative Care. HOSPITAL STAY: This patient was transferred from [facility] from hospice care for low blood pressure after family had withdrawn DNR and hospice per report from [facility]. The patient was recently discharged from [facility] with hospice care due to end-stage process, but as the patient was having progression of disease, the family requested the patient be sent back to the emergency room. Please see admission H and P by Dr. Chris Reis. During his stay, the patient has required fluids up to 250 mL an hour to maintain a blood pressure of 90/50. Due to the patient's severe albuminemia and due to malnutrition, the patient began to third space. On 01/31/2017, the patient had no pain with his cholangitis, but on 02/01/2017, the patient was starting to exhibit some severe right abdominal pain. The patient's hyponatremia had varied from 130 to 135. On 01/31/2017, the patient was able to open mouth on request and speak yes and no questions, but unable to reply to most subjective answers. The patient did have firm abdominal ascites and decreased breath sounds in the bases. The patient had sacral and coccyx and midback ulcers at that time upon admission. Abdomen was firm. Palliative Care was reconsulted due to the patient's rapid decline and need for IV fluids for blood pressure maintenance. Palliative Care was able to discuss with family and the patient was made a DNR/DNI. On 02/01/2017, it was noted upon assessment that the patient had become more tachypneic with respiratory rate in the 30s and was starting to complain of abdominal pain. We were only able to get his blood pressure manually with a Doppler. The patient's skin and sclerae have remained severely icteric. We decreased his IV fluids due to third spacing, and the patient was prescribed morphine for his respiratory status as well as Ativan p.r.n. for his anxiety. The patient then began to require Dilaudid for his pain relief. Throughout the day, the patient's physical state began to decline, and at 2128 hours, the patient . SLC/MODL Maxine Baeza Discharge Summary [address] [address] NAME: TIFFANIE ORO : 43 STATUS : DIS IN PAT#: [id number] AGE: 71 ADM/REG DATE : 01/30/17 MR#: [id number] REPORT SERV DATE: 02/03/17 DICTATED BY: DATE: REPORT STATUS : Draft TRANSCRIBED BY: MODL DATE: 02/02/17 JOHN Luna / [id number] CC: Jerald Brock MD
--- NOTE | ~2017-01-30 | HP ---
History And Physical [place] [id number] [facility] [place]. [address] NAME: TIFFANIE ORO : 43 STATUS : ADM IN [facility]#: [id number] AGE: 71 ADM/REG DATE : 01/30/17 MR#: [id number] REPORT SERV DATE: 01/31/17 DICTATED BY: RELL LEE DATE: 01/30/17 REPORT STATUS : Draft TRANSCRIBED BY: MODGabby DATE: 01/30/17 DATE OF ADMISSION: 01/30/2017 The patient was transferred from [facility] from hospice care for low blood pressure after family has withdrawn DNR and hospice per reports. HISTORY OF PRESENT ILLNESS: The patient is a 71-year-old male with primary sclerosing cholangitis, subsequent end-stage liver disease, hyponatremia, aortic stenosis, dementia, cachexia, severe protein-calorie malnutrition, who was recently discharged with hospice care due to end-stage processes. However, as the patient was having progression of disease, was progressively hypotensive, per reports, family requested the patient be sent back to emergency room. Hypotension has been constant, moderate to severe with systolics in the 70s on arrival. The patient denies any pain or symptoms due to mental status. Is fairly nonverbal, but does watch with eyes and tracks. The patient is slightly responding to multiple fluid boluses given in the emergency room. Does have decreased urine output. Has cachexia, chronicity. There is no reported associated systems except for decreased p.o. intake. The patient had been tried what apparently appears to be reverse Trendelenburg without improvement at outside facility. Low blood pressure still currently present, only slightly better. REVIEW OF SYSTEMS: Unobtainable secondary to mental status. PAST MEDICAL HISTORY: Primary sclerosing cholangitis, autoimmune hepatitis, end-stage liver disease, coagulopathy, liver disease, severe hypoalbuminemia secondary to liver disease, mild aortic stenosis, history of spinal compression fractures, GERD, peptic ulcer disease, and schizophrenia. SURGICAL HISTORY: Cholecystectomy, ERCP with stent placement in the past. The patient recently had humeral and femoral fractures on the left side secondary to fall, which were deemed nonop. ALLERGIES: NO KNOWN DRUG ALLERGIES. SOCIAL HISTORY: No history of smoking, alcohol, or illicits. Still residing at [facility]. FAMILY HISTORY: Pancreatic cancer, coronary artery disease, siblings with history of hepatic cirrhosis. MEDICATIONS: In the facility, alendronate, azathioprine, finasteride, Lasix, CellCept, paliperidone, prednisone, Prilosec, spironolactone, trazodone, vitamin D, capsaicin, Tylenol, magnesium oxide, enema, tramadol, and oxycodone. PHYSICAL EXAMINATION: VITAL SIGNS: Blood pressure 87/52 improved to 96/52, temperature 98.2, pulse 93, respirations 18, O2 saturations 100% on room air. History And Physical [address] [address] NAME: TIFFANIE ORO : 43 STATUS : ADM IN [facility]#: [id number] AGE: 71 ADM/REG DATE : 01/30/17 MR#: [id number] REPORT SERV DATE: 01/31/17 DICTATED BY: RELL LEE DATE: 01/30/17 REPORT STATUS : Draft TRANSCRIBED BY: ROBINSON DATE: 01/30/17 GENERAL: Chronically ill. Severe jaundice. Cachectic with temporal wasting. Sunken eyes. Does have scleral icterus. Tracks with command. ENT: Dry mucous membranes. Poor dentition. RESPIRATORY: Clear to auscultation. No wheezes. CV: Tachycardic, hypotensive. GI: Soft. Bowel sounds are still positive. Nontender. : Deferred. MUSCULOSKELETAL: Float heels. Does have atrophy of muscle groups diffusely. SKIN: Jaundiced. HEME: No bleeding or bruising. NEURO: Tracks. Nonverbal at this time, but was talking to emergency room doctor. PSYCH: Calm, but nonverbal. LABORATORY DATA: CMP; sodium 130, potassium 3.6, bicarb 113, BUN and creatinine 44 and 1.53, calcium 6.9, albumin 1.4, total protein 4.8. TSH within normal limits, but AST and ALT 289 and 188, alkaline phosphatase 585. T bilirubin 21.4. CBC; WBC 5.1, H and H 9.9 and 29.4, platelets 196, bands 29, segs 49. INR 1.5. Lactate 2.9. Most recent blood cultures all negative. ASSESSMENT AND PLAN: 1. Hypotension. 2. Metabolic acidosis. 3. Lactic acidosis. 4. Acute kidney injury. 5. Severe protein-calorie malnutrition present on arrival. 6. End-stage primary sclerosing cholangitis with end-stage liver disease. 7. Bandemia with normal WBC count. 8. Dementia with schizophrenia history. 9. Hyponatremia, chronic. 10.Left hip humeral fracture. 11.Skin wounds, ulcers. 12.Very poor prognosis. Was recent hospice, DNR, reversed by family. PLAN: 1. For hypotension, is notably volume depleted. IV fluids. Check cortisol. Is on chronic steroids and pain medications. The facility we will hold all of this until blood pressure starts to improve. Albumin replacement, as the patient has minimal albumin and minimal nutrition. The patient's sequential organ failure assessment SOFA score is 9 with at least a 40% to 50% mortality consistent with the patient's end-stage liver disease. 2. Metabolic acidosis. Does have positive lactate monitor. Negative prior cultures. 3. Lactic acidosis. IV fluids. Volume resuscitation likely secondary to hypotension. 4. DENIA. IV fluids. 5. Severe protein-calorie malnutrition, likely secondary to multitude of end-stage liver disease, dementia. P.o. as tolerated. Aspiration precautions. Soft mechanical diet. 6. End-stage liver disease. Elevated liver enzymes. We will check ammonia. We will start lactose once blood pressure begins. We will need to start lactulose once blood History And Physical [address] [address] NAME: TIFFANIE ORO : 43 STATUS : ADM IN [facility]#: [id number] AGE: 71 ADM/REG DATE : 01/30/17 MR#: [id number] REPORT SERV DATE: 01/31/17 DICTATED BY: RELL LEE DATE: 01/30/17 REPORT STATUS : Draft TRANSCRIBED BY: MODL DATE: 01/30/17 pressure becomes stable. 7. Bandemia with normal WBC. Monitor WBC. Anticipatory rise. 8. Dementia with schizophrenia history. Monitor. 9. Hyponatremia. Continued daily monitor, has somewhat improved from prior. 10.Left hip femoral fracture, arm in sling. 11.Wound care. Skin wounds and ulcers secondary to multitude of end-stage renal disease, protein-calorie malnutrition, poor ambulatory state. Preventive measures are still currently in place with float heels, turning q.2. 12.Very poor prognosis, although the patient was recently hospice and Dr. Wallace has already discussed with family DNR. The patient is reported to have reversed all code status and hospice due to hypotension and requesting everything to be done. We will reconsult Palliative. Unfortunately, I doubt with the patient's multitude of problems before this, this is continuation and progression of disease, poor long-term prognosis. DDN/MODL Rell Lee MD / [id number] CC: Benji Sullivan MD
[2017-01-30 20:30] LABS: BASOPHILS 0.2 %; BASOPHILS ABSOLUTE 0.01 10/3/uL (0.0-0.16); EOSINOPHILS 0.4 %; EOSINOPHILS ABSOLUTE 0.02 10/3/uL (0.0-0.53); HEMATOCRIT 29.4 % (40.0-51.0); HEMOGLOBIN 9.9 g/dL (13.6-17.8); IMMATURE GRANULOCYTES 16.6 %; IMMATURE GRANULOCYTES ABSOLUTE 0.84 10/3/uL (0.0-0.11); LYMPHOCYTES 5.5 %; LYMPHOCYTES ABSOLUTE 0.28 10/3/uL (0.67-4.30); MEAN CORPUS HGB CONC 33.7 g/dL (32.0-36.0); MEAN CORPUSCULAR HEMOGLOB 29.6 pg (26.0-34.0); MEAN CORPUSCULAR VOLUME 87.8 fL (80-100); MONOCYTES 2.4 %; MONOCYTES ABSOLUTE 0.12 10/3/uL (0.21-1.20); NEUTROPHILS 74.9 %; NEUTROPHILS ABSOLUTE 3.78 10/3/uL (2.02-8.40); NUCLEATED RED BLOOD CELLS 0.4 /100WBC (0-0); PLATELET COUNT 196 10/3/uL (150-400); RBC DISTRIBUTION WIDTH 30.1 % (12.0-16.0); RED CELL COUNT 3.35 10/6/uL (4.7-6.1); WHITE BLOOD CELLS 5.1 10/3/uL (4.5-10.5)
[2017-01-30 20:31] LABS: MANUAL DIFF NO %
[2017-01-30 20:36] LABS: INTERNATIONAL NORMAL RATI 1.5 UNITS (-); PARTIAL THROMBO TIME 46.8 SEC (22.5-37.2)
[2017-01-30 20:43] LABS: PROTIME (NOT ORD) 18.2 SEC (12.0-14.5)
[2017-01-30 21:01] LABS: LACTATE 2.9 MMOL/L (0.3-2.4)
[2017-01-30 21:10] LABS: BAND NEUTROPHILS 29 %; ER DIFF TAT 0 Hrs 46 Mins; IMMATURE GRANS ABSOLUTE (CALC) 0.31 10/3/uL (0.0-0.11); LYMPHOCYTES 9 %; LYMPHOCYTES ABSOLUTE (CALC) 0.46 10/3/uL (0.67-4.30); METAMYELOCYTES 6 %; MONOCYTES 7 %; MONOCYTES ABSOLUTE (CALC) 0.36 10/3/uL (0.21-1.20); NEUTROPHILS ABSOLUTE (CALC) 3.98 10/3/uL (2.02-8.40); PLATELET ESTIMATE ADQ (ADEQUATE); SEGMENTED NEUTROPHIL (0) 49 %; TOTAL NUCLEATED CELLS 100; TOXIC GRANULATION 1+
[2017-01-30 21:11] LABS: ACANTHOCYTES FEW (3-10/OIF); BURR CELLS 1+ (3-10/OIF) (0-2/OIF)
[2017-01-30 21:12] LABS: SCHISTOCYTES OCC (0-2/OIF)
[2017-01-30 21:17] LABS: BUN (BLOOD UREA NITROGEN) 44 MG/DL (6-23); CALCIUM, SERUM 6.9 MG/DL (8.5-10.4); CHLORIDE, SERUM 100 MMOL/L (96-112); CO2 (CARBON DIOXIDE) 13 MMOL/L (24-34); GLUCOSE, SERUM 87 MG/DL (60-99); POTASSIUM, SERUM 3.6 MMOL/L (3.5-5.3); SGOT(AST) 289 U/L (5-40); SGPT(ALT) 188 U/L (5-65); SODIUM, SERUM 130 MMOL/L (135-148)
[2017-01-30 21:18] LABS: A/G RATIO 0.4 (0.7-1.9); ALBUMIN 1.4 G/DL (3.5-5.0); ALKALINE PHOSPHATASE 585 U/L (45-117); CREATININE 1.53 MG/DL (0.70-1.30); GFR AFRICAN AMERICAN 52 ML/MIN (>=60); GFR NON AFRICAN AMERICAN 45 ML/MIN (>=60); GLOBULIN 3.4 G/DL (2.5-4.1); TOTAL BILIRUBIN 21.4 MG/DL (0-1.2); TOTAL PROTEIN 4.8 G/DL (6.0-8.5); ULTRASENSITIVE TSH 0.468 MCIU/ML (0.358-3.740)
[~2017-01-30 21:42] MED LIST changes: +AUG875 PO; +L20 PO; +MIRALAX POWDER1 PKT PO; +SANTYL OINTMENT TOP; +SPIRO50 PO; +T PEG; +TRAZODONE150 MG PO; +ULTRAM50 PO
[2017-01-30] MEDS ORDERED: IMU PO (22:06)
[2017-01-30] MEDS ORDERED: ENULOSE PO (22:06)
[2017-01-30] MEDS ORDERED: PROSCAR5 PO (22:06)
[2017-01-30] MEDS ORDERED: CELLCEPT5 PO (22:13)
[2017-01-30] MEDS ORDERED: INVEGA3 MG PO (22:14)
[2017-01-30] MEDS ORDERED: P5 PO (22:15)
[2017-01-30] MEDS ORDERED: PRILOSEC OTC20 MG PO (22:16)
[2017-01-30] MEDS ORDERED: URSO FORTE500 MG PO (22:17)
[2017-01-30] MEDS ORDERED: VITAMIN D1000 UNI1 PO (22:18)
[2017-01-30] MEDS ORDERED: ROXICODONE15 MG PO (22:19)
[2017-01-31 05:59] LABS: HEMATOCRIT 25.6 % (40.0-51.0); HEMOGLOBIN 8.8 g/dL (13.6-17.8); MANUAL DIFF YES %; MEAN CORPUS HGB CONC 34.4 g/dL (32.0-36.0); MEAN CORPUSCULAR HEMOGLOB 29.9 pg (26.0-34.0); MEAN CORPUSCULAR VOLUME 87.1 fL (80-100); PLATELET COUNT 207 10/3/uL (150-400); RBC DISTRIBUTION WIDTH 30.9 % (12.0-16.0); RED CELL COUNT 2.94 10/6/uL (4.7-6.1); WHITE BLOOD CELLS 4.4 10/3/uL (4.5-10.5)
[2017-01-31 06:20] LABS: CALCIUM, SERUM 7.1 MG/DL (8.5-10.4); CHLORIDE, SERUM 105 MMOL/L (96-112); GLUCOSE, SERUM 72 MG/DL (60-99); POTASSIUM, SERUM 3.1 MMOL/L (3.5-5.3); SODIUM, SERUM 133 MMOL/L (135-148)
[2017-01-31 06:22] LABS: BUN (BLOOD UREA NITROGEN) 36 MG/DL (6-23); CO2 (CARBON DIOXIDE) 13 MMOL/L (24-34); CREATININE 1.23 MG/DL (0.70-1.30); GFR AFRICAN AMERICAN 68 ML/MIN (>=60); GFR NON AFRICAN AMERICAN 58 ML/MIN (>=60); PHOSPHORUS, SERUM 3.2 MG/DL (2.5-4.5)
[2017-01-31 06:34] LABS: ANISOCYTOSIS 4+ (>50/OIF) (0-5/OIF); BAND NEUTROPHILS 23 %; BURR CELLS 1+ (3-10/OIF) (0-2/OIF); IMMATURE GRANS ABSOLUTE (CALC) 0.48 10/3/uL (0.0-0.11); LYMPHOCYTES 4 %; LYMPHOCYTES ABSOLUTE (CALC) 0.18 10/3/uL (0.67-4.30); METAMYELOCYTES 10 %; MONOCYTES 3 %; MONOCYTES ABSOLUTE (CALC) 0.13 10/3/uL (0.21-1.20); MYELOCYTES 1 %; NEUTROPHILS ABSOLUTE (CALC) 3.61 10/3/uL (2.02-8.40); PLATELET ESTIMATE ADQ (ADEQUATE); POLYCHROMASIA 2+ (5-10/OIF) (0-1/OIF); SCHISTOCYTES OCC (0-2/OIF); SEGMENTED NEUTROPHIL (0) 59 %; TARGET CELLS FEW (3-10/OIF) (0-1/OIF); TOTAL NUCLEATED CELLS 100
[2017-01-31 07:07] LABS: PROCALCITONIN 1.29 ng/mL (<0.5)
[2017-02-01 04:34] LABS: HEMATOCRIT 25.4 % (40.0-51.0); HEMOGLOBIN 9.1 g/dL (13.6-17.8); MEAN CORPUS HGB CONC 35.8 g/dL (32.0-36.0); MEAN CORPUSCULAR HEMOGLOB 31.1 pg (26.0-34.0); MEAN CORPUSCULAR VOLUME 86.7 fL (80-100); PLATELET COUNT 178 10/3/uL (150-400); RBC DISTRIBUTION WIDTH 29.9 % (12.0-16.0); RED CELL COUNT 2.93 10/6/uL (4.7-6.1)
[2017-02-01 04:36] LABS: MANUAL DIFF YES %; WHITE BLOOD CELLS 1.5 10/3/uL (4.5-10.5)
[2017-02-01 04:45] LABS: ALBUMIN 1.6 G/DL (3.5-5.0); CHLORIDE, SERUM 109 MMOL/L (96-112); GLUCOSE, SERUM 58 MG/DL (60-99); SODIUM, SERUM 135 MMOL/L (135-148)
[2017-02-01 04:48] LABS: BUN (BLOOD UREA NITROGEN) 40 MG/DL (6-23); CALCIUM, SERUM 6.7 MG/DL (8.5-10.4); CO2 (CARBON DIOXIDE) 10 MMOL/L (24-34); CREATININE 1.13 MG/DL (0.70-1.30); GFR AFRICAN AMERICAN 75 ML/MIN (>=60); GFR NON AFRICAN AMERICAN 65 ML/MIN (>=60); POTASSIUM, SERUM 3.3 MMOL/L (3.5-5.3)
[2017-02-01 04:58] LABS: ANISOCYTOSIS 4+ (>50/OIF) (0-5/OIF); BAND NEUTROPHILS 16 %; IMMATURE GRANS ABSOLUTE (CALC) 0.17 10/3/uL (0.0-0.11); LYMPHOCYTES 10 %; LYMPHOCYTES ABSOLUTE (CALC) 0.15 10/3/uL (0.67-4.30); METAMYELOCYTES 9 %; MONOCYTES 5 %; MONOCYTES ABSOLUTE (CALC) 0.08 10/3/uL (0.21-1.20); MYELOCYTES 2 %; NEUTROPHILS ABSOLUTE (CALC) 1.11 10/3/uL (2.02-8.40); PLATELET ESTIMATE ADQ (ADEQUATE); SEGMENTED NEUTROPHIL (0) 58 %; TARGET CELLS MANY (>20/OIF) (0-1/OIF); TOTAL NUCLEATED CELLS 100
[2017-02-01 04:59] LABS: TEARDROP SHAPED RBCS FEW (3-10/OIF)
== END 2017-02-01 21:46 | disposition expired | DRG 871 ==
LOC: ER 21:42 → 7NO 23:39
PROVIDERS: Hospitalist; Nurse Practitioner Family
DX: A41.9 Sepsis, unspecified organism (principal); E43 Unspecified severe protein-calorie malnutrition; N17.9 Acute kidney failure, unspecified; S72.92XA Unspecified fracture of left femur, initial encounter for closed fracture; K83.0 Cholangitis; D68.9 Coagulation defect, unspecified; K83.1 Obstruction of bile duct; E87.2 Acidosis; R64 Cachexia; E87.1 Hypo-osmolality and hyponatremia; S42.302A Unspecified fracture of shaft of humerus, left arm, initial encounter for closed fracture; Z68.1 Body mass index [BMI] 19.9 or less, adult; R65.20 Severe sepsis without septic shock; E86.9 Volume depletion, unspecified; K70.31 Alcoholic cirrhosis of liver with ascites; F03.90 Unspecified dementia, unspecified severity, without behavioral disturbance, psychotic disturbance, mood disturbance, and anxiety; I35.0 Nonrheumatic aortic (valve) stenosis; Z51.5 Encounter for palliative care; K75.4 Autoimmune hepatitis; Z66 Do not resuscitate; F20.9 Schizophrenia, unspecified; L98.499 Non-pressure chronic ulcer of skin of other sites with unspecified severity; B96.89 Other specified bacterial agents as the cause of diseases classified elsewhere; W19.XXXA Unspecified fall, initial encounter
CPT/HCPCS: 80048; 80053; 80069; 81001; 82140; 82330; 82962; 83605; 83735; 84100; 84132; 84145; 84443; 85025; 85610; 85730; 87040; 87070; 87075; 87077; 87186; 87205; 96374; 96375; 99285; A9270-GY; J1170; J1720; J7500; P9045